=== PATIENT | female | born 1970 | race Caucasian/White ===

== ENCOUNTER 2017-01-17 10:29 | Inpatient (IN) | payer BC, OTHER ==
[2017-01-17] MEDS ORDERED: RX INFO: IV CONTRAST WAS GIVEN 1 EACH MISC MISCELLANE PRN (11:25)
[2017-01-17] MEDS ORDERED: SODIUM CHLORIDE 0.9% 1,000 ML IV STA (11:25)
[2017-01-17] MEDS ORDERED: LORazepam 1 MG TAB PO STA (11:30)
--- NOTE | 2017-01-17 11:34 | ED ---
Abdominal Pain HPI - General Chief Complaint: Abdominal Pain Stated Complaint: abd pain Time Seen by Provider: 01/17/17 10:57 Source: patient Mode of arrival: ambulatory Limitations: no limitations - History of Present Illness Initial Comments: Complaining about right upper quadrant pain, pain started 2 days ago she been nauseous no vomiting denies any fever no chills. She has a history of C- section about 17 years ago for chest pain or shortness of breath no pleuritic chest pain no diarrhea no constipation no frequency urgency dysuria. Review of system is unremarkable - Related Data Home Medications Medication Instructions Recorded Confirmed LORazepam [Ativan] 0.5 mg PO DAILY PRN 05/09/16 01/17/17 Hydrochlorothiazide 25 mg PO DAILY 01/17/17 01/17/17 Allergies Allergy/AdvReac Type Severity Reaction Status Date / Time meperidine HCl [From Demerol] Allergy Unknown Verified 01/17/17 10:38 steroid Allergy Unknown Uncoded 01/17/17 10:38 Review of Systems ROS Statement: Those systems with pertinent positive or pertinent negative responses have been documented in the HPI. ROS Other: All systems not noted in ROS Statement are negative. Past Medical History Past Medical History: Hypertension History of Any Multi-Drug Resistant Organisms: None Reported Past Surgical History: Section, Orthopedic Surgery Additional Past Surgical History / Comment(s): left knee Past Psychological History: Anxiety Smoking Status: Never smoker Past Alcohol Use History: None Reported Past Drug Use History: None Reported General Exam - General Exam Comments Initial Comments: General: The patient is awake and alert, she is anxious and in mild distress Skin: Skin is warm and dry and no rashes or lesions are noted. Eye: Pupils are equal, round and reactive to light, extra-ocular movements are intact; there is normal conjunctiva bilaterally. Ears, nose, mouth and throat: There are moist mucous membranes and no oral lesions. Neck: The neck is supple, there is no tenderness or JVD. Cardiovascular: There is a regular rate and rhythm. No murmur, rub or gallop is appreciated. Heart rate is bit fast, pulse was 1:15 per minute at the time of exam Respiratory: To auscultation bilateral, no wheezing no rhonchi no distress respiratory dumont noticed Gastrointestinal: Soft, non-distended, except right upper quadrant area is moderately tender and she is also tender over the right flank area. He is also tender in the epigastric area Back: There is no tenderness to palpation in the midline. There is no obvious deformity. Musculoskeletal: Normal ROM, no tenderness, There is no pedal edema. There is no calf tenderness or swelling. No cords were appreciated. Neurological: CN II-XII intact, Cranial nerves III through XII are intact. There are no obvious motor or sensory deficits. Coordination appears grossly intact. Speech is normal. Psychiatric: Cooperative, appropriate mood & affect, normal judgment. Limitations: no limitations Course Vital Signs 01/17/17 01/17/17 10:39 13:17 Temperature 97.9 F Pulse Rate 114 H 60 Respiratory 17 16 Rate Blood Pressure 130/87 124/69 O2 Sat by Pulse 97 99 Oximetry She was reassessed at 1345, CBC, CMP, amylase lipase, UA and beta hCG are all negative CT of the abdomen and pelvis confirms acute pancreatitis noticed some inflammation of the pancreatic head on head CT considering that she be admitted to Dr. Bauman's service and she will get ultrasound and Dr. Villatoro will be consulted as well Medical Decision Making - Lab Data Result diagrams: 01/17/17 11:55 01/17/17 11:55 Lab Results 01/17/17 01/17/17 01/17/17 Range/Units 11:55 11:55 11:55 WBC 10.9 H (3.8-10.6) k/uL RBC 4.39 (3.80-5.40) m/uL Hgb 14.1 (11.4-16.0) gm/dL Hct 40.4 (34.0-46.0) % MCV 92.0 (80.0-100.0) fL MCH 32.0 (25.0-35.0) pg MCHC 34.8 (31.0-37.0) g/dL RDW 13.1 (11.5-15.5) % Plt Count 220 (150-450) k/uL Neutrophils % 77 % Lymphocytes % 16 % Monocytes % 4 % Eosinophils % 1 % Basophils % 1 % Neutrophils # 8.4 H (1.3-7.7) k/uL Lymphocytes # 1.8 (1.0-4.8) k/uL Monocytes # 0.5 (0-1.0) k/uL Eosinophils # 0.1 (0-0.7) k/uL Basophils # 0.1 (0-0.2) k/uL Sodium 139 (137-145) mmol/L Potassium 3.5 (3.5-5.1) mmol/L Chloride 101 (98-107) mmol/L Carbon Dioxide 27 (22-30) mmol/L Anion Gap 11 mmol/L BUN 10 (7-17) mg/dL Creatinine 0.90 (0.52-1.04) mg/dL Est GFR (MDRD) Af Amer >60 (>60 ml/min/1.73 sqM) Est GFR (MDRD) Non-Af >60 (>60 ml/min/1.73 sqM) Glucose 95 (74-99) mg/dL Plasma Lactic Acid Edu (0.7-2.0) mmol/L Calcium 9.3 (8.4-10.2) mg/dL Total Bilirubin 1.2 (0.2-1.3) mg/dL AST 18 (14-36) U/L ALT 27 (9-52) U/L Alkaline Phosphatase 105 (38-126) U/L Total Protein 7.4 (6.3-8.2) g/dL Albumin 4.2 (3.5-5.0) g/dL Amylase 53 (30-110) U/L Lipase 81 (23-300) U/L Urine Color Yellow Urine Appearance Cloudy H (Clear) Urine pH 8.0 (5.0-8.0) Ur Specific [place] 1.017 (1.001-1.035) Urine Protein Trace H (Negative) Urine Glucose (UA) Negative (Negative) Urine Ketones 2+ H (Negative) Urine Blood Negative (Negative) Urine Nitrite Negative (Negative) Urine Bilirubin Negative (Negative) Urine Urobilinogen <2.0 (<2.0) mg/dL Ur Leukocyte Esterase Negative (Negative) Urine RBC <1 (0-5) /hpf Urine WBC 1 (0-5) /hpf Ur Squamous Epith Cells 5 H (0-4) /hpf Urine Bacteria Few H (None) /hpf Urine Mucus Rare H (None) /hpf Urine HCG, Qual (Not Detectd) 01/17/17 01/17/17 Range/Units 11:55 11:55 WBC (3.8-10.6) k/uL RBC (3.80-5.40) m/uL Hgb (11.4-16.0) gm/dL Hct (34.0-46.0) % MCV (80.0-100.0) fL MCH (25.0-35.0) pg MCHC (31.0-37.0) g/dL RDW (11.5-15.5) % Plt Count (150-450) k/uL Neutrophils % % Lymphocytes % % Monocytes % % Eosinophils % % Basophils % % Neutrophils # (1.3-7.7) k/uL Lymphocytes # (1.0-4.8) k/uL Monocytes # (0-1.0) k/uL Eosinophils # (0-0.7) k/uL Basophils # (0-0.2) k/uL Sodium (137-145) mmol/L Potassium (3.5-5.1) mmol/L Chloride (98-107) mmol/L Carbon Dioxide (22-30) mmol/L Anion Gap mmol/L BUN (7-17) mg/dL Creatinine (0.52-1.04) mg/dL Est GFR (MDRD) Af Amer (>60 ml/min/1.73 sqM) Est GFR (MDRD) Non-Af (>60 ml/min/1.73 sqM) Glucose (74-99) mg/dL Plasma Lactic Acid Edu 0.9 (0.7-2.0) mmol/L Calcium (8.4-10.2) mg/dL Total Bilirubin (0.2-1.3) mg/dL AST (14-36) U/L ALT (9-52) U/L Alkaline Phosphatase (38-126) U/L Total Protein (6.3-8.2) g/dL Albumin (3.5-5.0) g/dL Amylase (30-110) U/L Lipase (23-300) U/L Urine Color Urine Appearance (Clear) Urine pH (5.0-8.0) Ur Specific [place] (1.001-1.035) Urine Protein (Negative) Urine Glucose (UA) (Negative) Urine Ketones (Negative) Urine Blood (Negative) Urine Nitrite (Negative) Urine Bilirubin (Negative) Urine Urobilinogen (<2.0) mg/dL Ur Leukocyte Esterase (Negative) Urine RBC (0-5) /hpf Urine WBC (0-5) /hpf Ur Squamous Epith Cells (0-4) /hpf Urine Bacteria (None) /hpf Urine Mucus (None) /hpf Urine HCG, Qual Not Detected (Not Detectd) Disposition Clinical Impression: Right upper quadrant pain, Right flank pain, Acute pancreatitis Disposition: ADMITTED IP TO THIS HOSP Condition: Good Referrals: Caryl Toribio MD [Primary Care Provider] - 1-2 days
[2017-01-17] MEDS: SODIUM CHLORIDE 0.9% 1,000 ML IV STA ×2 (12:00→18:32)
[2017-01-17 12:10] LABS: Basophils # (A) 0.1 k/uL (0-0.2); Basophils % (A) 1 %; CH 32.6; CHCM 35.6; Eosinophils # (A) 0.1 k/uL (0-0.7); Eosinophils % (A) 1 %; HCT 40.4 % (34.0-46.0); HDW 2.62; HGB 14.1 gm/dL (11.4-16.0); Luc # (Auto) 0.15; Luc % (Auto) 1; Lymphocytes # (A) 1.8 k/uL (1.0-4.8); Lymphocytes % (A) 16 %; MCHC 34.8 g/dL (31.0-37.0); Mean Platelet Volume 7.2; Monocytes # (A) 0.5 k/uL (0-1.0); Monocytes % (A) 4 %; Neutrophils # (A) 8.4 k/uL (1.3-7.7); Neutrophils % (A) 77 %; RBC 4.39 m/uL (3.80-5.40); RDW 13.1 % (11.5-15.5); WBC 10.9 k/uL (3.8-10.6); WBC (Perox) 9.81
[2017-01-17 12:13] LABS: Appearance,Urine Cloudy (Clear); Bacteria,Urine Few /hpf; Bilirubin,Urine Negative (Negative); Glucose,Urine (UA) Negative (Negative); Ketones,Urine 2+ (Negative); Leukocyte Esterase,Urine Negative (Negative); Mucus,Urine Rare /hpf; Nitrite,Urine Negative (Negative); Particle Count 5456; Protein,Urine Trace (Negative); RBC,Urine <1 /hpf (0-5); Specific Gravity,Urine 1.017 (1.001-1.035); Squamous Epithelial Cell,Urine 5 /hpf (0-4); UA Billing (MACRO vs. MICRO) MICRO; Urobilinogen,Urine <2.0 mg/dL (<2.0); WBC,Urine 1 /hpf (0-5)
[2017-01-17 12:27] LABS: ALT 27 U/L (9-52); AST 18 U/L (14-36); Alkaline Phosphatase 105 U/L (38-126); Amylase 53 U/L (30-110); Anion Gap 11 mmol/L; Blood Urea Nitrogen 10 mg/dL (7-17); Calcium 9.3 mg/dL (8.4-10.2); Carbon Dioxide 27 mmol/L (22-30); Chloride 101 mmol/L (98-107); Glucose 95 mg/dL (74-99); Non-African American GFR(MDRD) >60 (>60 ml/min/1.73 sqM); Potassium 3.5 mmol/L (3.5-5.1); Sodium 139 mmol/L (137-145); Total Bilirubin 1.2 mg/dL (0.2-1.3); Total Protein 7.4 g/dL (6.3-8.2)
--- NOTE | 2017-01-17 13:25 | CT ---
EXAMINATION TYPE: CT abdomen pelvis w con DATE OF EXAM: 01/17/2017 12:57 PM REFERENCE: NONE HISTORY: abdominal pain HISTORY: RUQ pain REFERENCE: NONE CT DLP: 1798 mGy Automated exposure control for dose reduction was used. TECHNIQUE: Helical acquisition through the abdomen and pelvis was obtained following the oral ingesti on of without Oral Contrast and following intravenous administration of 100 mL of Omnipaque 300. The data was reformatted in axial, coronal and sagittal projections. FINDINGS: Visualized portions of the lungs are clear. There is no pleural or pericardial fluid. The heart is not enlarged. Within the abdomen, the liver, spleen and gallbladder are normal. Both adrenal glands appear normal. Both kidneys demonstrate function and appear morphologically normal. There is inflammation around the head of the pancreas suggestive of pancreatitis. There is no pseudoc yst formation at this time. There is no significant retroperitoneal, iliac or inguinal adenopathy. The uterus is unremarkable. There is a 2.7 cm right ovarian cyst. There is a 1.8 cm left ovarian cyst . The bladder is unremarkable. There is no significant diverticular change and there is no radiographic evidence of diverticulitis. The appendix is normal. Small bowel loops appear normal. There is no free fluid and no free air. There is hypertrophic spondylosis within the lower dorsal spine. There is facet arthropathy at the L4 -5 level. No bony destructive lesion is seen. IMPRESSION: 1. FINDINGS CONSISTENT WITH ACUTE PANCREATITIS. 2. BILATERAL OVARIAN CYSTS. 3. MILD DEGENERATIVE CHANGES WITHIN THE SPINE.
[2017-01-17] MEDS ORDERED: NALOXONE 0.4 MG/ML 1 ML VIAL IV PRN (14:01)
[2017-01-17] MEDS ORDERED: ONDANSETRON 4 MG/2 ML VIAL IVP PRN (14:01)
[2017-01-17] MEDS ORDERED: HYDROmorphone 1 MG/ML 1 ML SYRINGE IV PRN (14:01)
[2017-01-17] MEDS ORDERED: LORazepam 1 MG TAB PO PRN (14:06)
--- NOTE | 2017-01-17 14:58 | US ---
EXAMINATION TYPE: US abdomen limited DATE OF EXAM: 01/17/2017 2:28 PM COMPARISON: NONE CLINICAL HISTORY: Pain. RUQ pain, pancreatitis EXAM MEASUREMENTS: Liver Length: 13.8 cm Gallbladder Wall: 0.2 cm CBD: 0.3 cm Right Kidney: 10.3 x 5.5 x 4.6 cm Pancreas: obscured by overlying bowel content Liver: appears wnl Gallbladder: no evidence of stones Evidence for sonographic Wiggins's sign: no CBD: visualized portion appears wnl Right Kidney: no evidence of hydronephrosis, kidney is morphologically normal There is no ascites. IMPRESSION: No abnormality evident to account for patient's symptoms, CT scan shows findings suggesti ve of pancreatitis
--- NOTE | 2017-01-17 16:10 | P.GSCN ---
History of Present Illness Consult date: 01/17/17 Reason for Consult: Acute pancreatitis Requesting physician: Oliver Parkinson History of present illness: Patient is a 46-year-old female, patient of Dr. Arcoe in the outpatient setting, presenting to the emergency department with complaints of right upper quadrant pain onset 2 days associated with nausea but no vomiting. No history of fevers or chills. CT of abdomen and pelvis with evidence of inflammation around the head of the pancreas suggestive of pancreatitis without evidence of pseudocyst. Ultrasound of abdomen with no evidence of sonographic Wiggins sign or other abnormality evident to account for patient's symptoms. Patient afebrile. WBC 10.9. Liver enzymes within normal limits. Past Medical History Past Medical History: Hypertension History of Any Multi-Drug Resistant Organisms: None Reported Past Surgical History: Section, Orthopedic Surgery Additional Past Surgical History / Comment(s): left knee Past Psychological History: Anxiety Smoking Status: Never smoker Past Alcohol Use History: None Reported Past Drug Use History: None Reported Medications and Allergies Home Medications Medication Instructions Recorded Confirmed Type LORazepam [Ativan] 0.5 mg PO DAILY PRN 05/09/16 01/17/17 History Hydrochlorothiazide 25 mg PO DAILY 01/17/17 01/17/17 History Allergies Allergy/AdvReac Type Severity Reaction Status Date / Time meperidine HCl [From Demerol] Allergy Unknown Verified 01/17/17 10:38 steroid Allergy Unknown Uncoded 01/17/17 10:38 Surgical - Exam Vital Signs Temp Pulse Resp BP Pulse Ox 97.9 F 114 H 17 130/87 97 01/17/17 10:39 01/17/17 10:39 01/17/17 10:39 01/17/17 10:39 01/17/17 10:39 GENERAL: Pt awake and alert, well-appearing, well-nourished, and in no acute distress. EYES: Pupils equal, round, sclera anicteric, conjunctiva are normal. ENT: Moist mucous membranes. NECK: Supple without lymphadenopathy. LUNGS: Breath sounds clear to auscultation bilaterally. No wheezes, rales, or rhonchi. HEART: Heart S1, S2, no S3 or S4. Regular rate and rhythm. No murmurs, rubs or gallops. ABDOMEN: Soft, mild epigastric and right upper quadrant tenderness, nondistended , normoactive bowel sounds. No guarding, no rebound. No masses or organomegaly appreciated. NEUROLOGICAL: Pt oriented x 3. Results - Labs 01/17/17 11:55 01/17/17 11:55 Abnormal Lab Results - Last 24 Hours (Table) 01/17/17 01/17/17 Range/Units 11:55 11:55 WBC 10.9 H (3.8-10.6) k/uL Neutrophils # 8.4 H (1.3-7.7) k/uL Urine Appearance Cloudy H (Clear) Urine Protein Trace H (Negative) Urine Ketones 2+ H (Negative) Ur Squamous Epith Cells 5 H (0-4) /hpf Urine Bacteria Few H (None) /hpf Urine Mucus Rare H (None) /hpf Diabetes panel 01/17/17 Range/Units 11:55 Sodium 139 (137-145) mmol/L Potassium 3.5 (3.5-5.1) mmol/L Chloride 101 (98-107) mmol/L Carbon Dioxide 27 (22-30) mmol/L BUN 10 (7-17) mg/dL Creatinine 0.90 (0.52-1.04) mg/dL Glucose 95 (74-99) mg/dL Calcium 9.3 (8.4-10.2) mg/dL AST 18 (14-36) U/L ALT 27 (9-52) U/L Alkaline Phosphatase 105 (38-126) U/L Total Protein 7.4 (6.3-8.2) g/dL Albumin 4.2 (3.5-5.0) g/dL Calcium panel 01/17/17 Range/Units 11:55 Calcium 9.3 (8.4-10.2) mg/dL Albumin 4.2 (3.5-5.0) g/dL Pituitary panel 01/17/17 Range/Units 11:55 Sodium 139 (137-145) mmol/L Potassium 3.5 (3.5-5.1) mmol/L Chloride 101 (98-107) mmol/L Carbon Dioxide 27 (22-30) mmol/L BUN 10 (7-17) mg/dL Creatinine 0.90 (0.52-1.04) mg/dL Glucose 95 (74-99) mg/dL Calcium 9.3 (8.4-10.2) mg/dL Adrenal panel 01/17/17 Range/Units 11:55 Sodium 139 (137-145) mmol/L Potassium 3.5 (3.5-5.1) mmol/L Chloride 101 (98-107) mmol/L Carbon Dioxide 27 (22-30) mmol/L BUN 10 (7-17) mg/dL Creatinine 0.90 (0.52-1.04) mg/dL Glucose 95 (74-99) mg/dL Calcium 9.3 (8.4-10.2) mg/dL Total Bilirubin 1.2 (0.2-1.3) mg/dL AST 18 (14-36) U/L ALT 27 (9-52) U/L Alkaline Phosphatase 105 (38-126) U/L Total Protein 7.4 (6.3-8.2) g/dL Albumin 4.2 (3.5-5.0) g/dL - Imaging CT scan - abdomen: report reviewed CT scan - pelvis: report reviewed US - abdomen: report reviewed Assessment and Plan Plan: Impression: 1. Acute pancreatitis as evidenced by CT of abdomen and pelvis. Liver enzymes unremarkable. Patient may have passed a gallstone. Plan: 1. Patient will undergo HIDA scan. Continue IV hydration. Continue supportive treatment and pain management. Continue to follow with medical team. The above impression and plan have been discussed and directed by Dr. Tee. Jaymie HENDERSON acting as scribe for Dr. Lopes.
--- NOTE | 2017-01-17 16:22 | P.HPIM ---
History of Present Illness H&P Date: 01/17/17 Chief Complaint: Abdominal pain epigastric right upper quadrant This is a pleasant 46-year-old lady patient of Dr. Dr. Toribio, with history of hypertension and anxiety hyperlipidemia currently diet-controlled, he presented to the emergency room secondary to abdominal pain of approximately 2 days' duration, it is described as sharp constant epigastric region and right upper quadrant region radiating to the right side, patient does not have any fever or chills no nausea no vomiting or diarrhea. Patient has intermittent bloating and indigestion for years, no previous workup for this to previous treatment for this. The emergency room she had a CAT scan of the abdomen and pelvis findings consistent with acute pancreatitis and bilateral ovarian cyst, mild DJD of the lower spine attention was made to inflammation around the head of the pancreas suggestive of pancreatitis. No pseudocyst formation noted, no lymph node however laboratories shows normal lipase of 81, urine WBC is normal at 1, ketones noted blood WBC of 10.9 normal liver function test Patient was admitted with consultation to Gen. surgery Dr. Lopes abdominal ultrasound was requested Review of Systems Constitutional: Reports as per HPI, Denies anorexia, Denies chills, Denies chronic headaches, Denies chronic pain, Denies daytime sleepiness, Denies fatigue, Denies fever, Denies lethargy, Denies malaise, Denies night sweats, Denies poor appetite, Denies sweats, Denies weakness, Denies weight gain, Denies weight loss Ears, nose, mouth and throat: Reports as per HPI, Denies ant. neck pain, Denies bleeding gums, Denies dental pain, Denies dysphagia, Denies epistaxis, Denies headache, Denies hoarseness, Denies mouth pain, Denies nasal congestion, Denies nasal discharge, Denies neck fullness/pressure, Denies neck lump, Denies nose pain, Denies odynophagia, Denies post-nasal drip, Denies sinus pain, Denies sinus pressure, Denies swelling in mouth, Denies swelling in throat, Denies sore throat, Denies vertigo, Denies voice changes Cardiovascular: Reports as per HPI, Denies chest pain, Denies claudication, Denies decreased exercise tolerance, Denies dyspnea on exertion, Denies edema, Denies high blood pressure, Denies irregular heart beat, Denies leg edema, Denies lightheadedness, Denies orthopnea, Denies palpitations, Denies paroxysmal nocturnal dyspnea, Denies phlebitis, Denies rapid heart beat, Denies shortness of breath, Denies syncope Respiratory: Reports as per HPI, Denies congestion, Denies cough, Denies cough with sputum, Denies dyspnea, Denies excessive sputum, Denies hemoptysis, Denies home oxygen, Denies pain, Denies pain on inspiration, Denies pleurisy, Denies respiratory infections, Denies sleep apnea, Denies snoring, Denies wheezing Gastrointestinal: Reports as per HPI, Reports abdominal pain, Reports belching, Reports bloating, Reports heartburn, Reports indigestion, Denies BRBPR, Denies change in bowel habits, Denies coffee ground emesis, Denies constipation, Denies diarrhea, Denies dyspepsia, Denies early satiety, Denies excessive gas, Denies hematemesis, Denies hematochezia, Denies jaundice, Denies lactose intolerance, Denies loss of appetite, Denies melena, Denies nausea, Denies vomiting Genitourinary: Reports as per HPI, Denies abnormal vaginal bleeding, Denies decreased libido, Denies difficulty conceiving, Denies difficulty voiding, Denies dysmenorrhea, Denies dyspareunia, Denies dysuria, Denies flank pain, Denies genital sores, Denies hematuria, Denies hot flashes, Denies incomplete emptying, Denies kidney stones, Denies menorrhagia, Denies mixed incontinence, Denies nocturia, Denies pelvic pain, Denies post void dribbling, Denies , Denies prolapse symptoms, Denies stress incontinence, Denies urge incontinence , Denies urgency, Denies urinary frequency, Denies vaginal discharge, Denies vaginal dryness, Denies vaginal itching, Denies vaginal odor Menstruation: Reports as per HPI Musculoskeletal: Reports as per HPI, Denies arm numbness/tingling, Denies atrophy, Denies fractures, Denies frequent falls, Denies gait dysfunction, Denies hot joints, Denies leg numbness/tingling, Denies limitation of motion, Denies loss of height, Denies low back pain, Denies morning stiffness, Denies muscle cramps, Denies muscle weakness, Denies myalgias, Denies neck pain, Denies neck stiffness, Denies prior amputations, Denies redness of joints, Denies shooting arm pain, Denies shooting leg pain Integumentary: Reports as per HPI, Denies acne, Denies boils, Denies brittle nails, Denies change in hair/nails, Denies color changes, Denies darkening of skin, Denies depigmentation, Denies dryness, Denies foot/leg ulcers, Denies growths, Denies hirsutism, Denies lesions, Denies onychomycosis, Denies pruritus , Denies rash, Denies sores, Denies striae, Denies unusual bruising, Denies wounds Neurological: Reports as per HPI, Denies aphasia, Denies ataxia, Denies balance difficulties, Denies burning pain, Denies change in mentation, Denies change in smell/taste, Denies change in speech, Denies confusion, Denies convulsions, Denies double vision, Denies gait dysfunction, Denies head injury, Denies headaches, Denies hearing difficulties, Denies lack of coordination, Denies loss of vision, Denies memory loss, Denies migraines, Denies motor disturbance, Denies numbness, Denies paralysis, Denies paresthesias, Denies seizures, Denies sensory deficit, Denies spasticity, Denies syncope, Denies tic, Denies tingling , Denies transient paralysis, Denies tremors, Denies vertigo, Denies weakness, Denies visual changes Psychiatric: Reports as per HPI, Denies anhedonia, Denies anxiety, Denies anxiety attacks, Denies change in appetite, Denies change in libido, Denies change in sleep habits, Denies confusion, Denies depression, Denies difficulty concentrating, Denies disorientation, Denies hallucinations, Denies hopelessness , Denies hypersomnia, Denies insomnia, Denies irritability, Denies memory loss, Denies mood swings, Denies paranoia, Denies sadness/tearfulness, Denies sleep disturbances, Denies suicidal ideation Endocrine: Reports as per HPI, Denies cold intolerance, Denies deepening of the voice, Denies excessive sweating, Denies excessive thirst, Denies fatigue, Denies flushing, Denies heat intolerance, Denies high blood sugars, Denies increase in ring/shoe/hat size, Denies low blood sugars, Denies nocturia, Denies palpitations, Denies polydipsia, Denies polyphagia, Denies polyuria, Denies proptosis, Denies recent glucocorticoid use, Denies thyroid mass, Denies weight change Past Medical History Past Medical History: Hypertension History of Any Multi-Drug Resistant Organisms: None Reported Past Surgical History: Section, Orthopedic Surgery Additional Past Surgical History / Comment(s): left knee Past Psychological History: Anxiety Smoking Status: Never smoker Past Alcohol Use History: None Reported Past Drug Use History: None Reported - Past Family History Mother Family Medical History: No Reported History Medications and Allergies Home Medications Medication Instructions Recorded Confirmed Type LORazepam [Ativan] 0.5 mg PO DAILY PRN 05/09/16 01/17/17 History Hydrochlorothiazide 25 mg PO DAILY 01/17/17 01/17/17 History Allergies Allergy/AdvReac Type Severity Reaction Status Date / Time meperidine HCl [From Demerol] Allergy Severe Nausea & Verified 01/17/17 18:01 Vomiting steroid Allergy Severe Nausea & Uncoded 01/17/17 18:01 Vomiting Physical Exam Vitals: Vital Signs Temp Pulse Pulse Resp BP BP Pulse Ox 01/17/17 15:37 97.3 F L 95 24 117/67 99 01/17/17 14:40 97.5 F L 99 18 132/78 98 01/17/17 13:17 60 16 124/69 99 01/17/17 10:39 97.9 F 114 H 17 130/87 97 Intake and Output 01/17/17 01/17/17 01/17/17 06:59 14:59 22:59 Other: Weight 90.718 kg 100.4 kg Patient Weight 01/18/17 06:59 Weight 100.4 kg - Constitutional General appearance: cooperative, no acute distress, obese - EENT Eyes: anicteric sclerae, EOMI, PERRLA, dentition normal, normal appearance ENT: hearing grossly normal, NA/AT, normal oropharynx - Neck Neck: no lymphadenopathy, normal ROM, no other, no rigidity, no stridor, no thyromegaly - Respiratory Respiratory: bilateral: CTA, negative: diminished, dullness, rales, rhonchi, wheezing, prolonged expiration - Cardiovascular Rhythm: regular Abnormal Heart Sounds: no systolic murmur, no diastolic murmur, no rub, no S3 Gallop, no S4 Gallop, no click, no other - Gastrointestinal General gastrointestinal: soft, tenderness (Epigastric and right upper quadrant) - Integumentary Integumentary: normal, normal turgor - Neurologic Neurologic: CNII-XII intact - Musculoskeletal Musculoskeletal: gait normal, strength equal bilaterally - Psychiatric Psychiatric: A&O x's 3, appropriate affect, intact judgment & insight Results CBC & Chem 7: 01/18/17 07:28 01/18/17 07:28 Labs: Abnormal Lab Results - Last 24 Hours (Table) 01/17/17 01/17/17 Range/Units 11:55 11:55 WBC 10.9 H (3.8-10.6) k/uL Neutrophils # 8.4 H (1.3-7.7) k/uL Urine Appearance Cloudy H (Clear) Urine Protein Trace H (Negative) Urine Ketones 2+ H (Negative) Ur Squamous Epith Cells 5 H (0-4) /hpf Urine Bacteria Few H (None) /hpf Urine Mucus Rare H (None) /hpf Laboratory Results WBC 10.9 k/uL (3.8-10.6) H 01/17/17 11:55 RBC 4.39 m/uL (3.80-5.40) 01/17/17 11:55 Hgb 14.1 gm/dL (11.4-16.0) 01/17/17 11:55 Hct 40.4 % (34.0-46.0) 01/17/17 11:55 MCV 92.0 fL (80.0-100.0) 01/17/17 11:55 MCH 32.0 pg (25.0-35.0) 01/17/17 11:55 MCHC 34.8 g/dL (31.0-37.0) 01/17/17 11:55 RDW 13.1 % (11.5-15.5) 01/17/17 11:55 Plt Count 220 k/uL (150-450) 01/17/17 11:55 Neutrophils % 77 % 01/17/17 11:55 Lymphocytes % 16 % 01/17/17 11:55 Monocytes % 4 % 01/17/17 11:55 Eosinophils % 1 % 01/17/17 11:55 Basophils % 1 % 01/17/17 11:55 Neutrophils # 8.4 k/uL (1.3-7.7) H 01/17/17 11:55 Lymphocytes # 1.8 k/uL (1.0-4.8) 01/17/17 11:55 Monocytes # 0.5 k/uL (0-1.0) 01/17/17 11:55 Eosinophils # 0.1 k/uL (0-0.7) 01/17/17 11:55 Basophils # 0.1 k/uL (0-0.2) 01/17/17 11:55 Sodium 139 mmol/L (137-145) 01/17/17 11:55 Potassium 3.5 mmol/L (3.5-5.1) 01/17/17 11:55 Chloride 101 mmol/L (98-107) 01/17/17 11:55 Carbon Dioxide 27 mmol/L (22-30) 01/17/17 11:55 Anion Gap 11 mmol/L 01/17/17 11:55 BUN 10 mg/dL (7-17) 01/17/17 11:55 Creatinine 0.90 mg/dL (0.52-1.04) 01/17/17 11:55 Est GFR (MDRD) Af Amer >60 (>60 ml/min/1.73 sqM) 01/17/17 11:55 Est GFR (MDRD) Non-Af >60 (>60 ml/min/1.73 sqM) 01/17/17 11:55 Glucose 95 mg/dL (74-99) 01/17/17 11:55 Plasma Lactic Acid Edu 0.9 mmol/L (0.7-2.0) 01/17/17 11:55 Calcium 9.3 mg/dL (8.4-10.2) 01/17/17 11:55 Total Bilirubin 1.2 mg/dL (0.2-1.3) 01/17/17 11:55 AST 18 U/L (14-36) 01/17/17 11:55 ALT 27 U/L (9-52) 01/17/17 11:55 Alkaline Phosphatase 105 U/L (38-126) 01/17/17 11:55 Total Protein 7.4 g/dL (6.3-8.2) 01/17/17 11:55 Albumin 4.2 g/dL (3.5-5.0) 01/17/17 11:55 Amylase 53 U/L (30-110) 01/17/17 11:55 Lipase 81 U/L (23-300) 01/17/17 11:55 Urine Color Yellow 01/17/17 11:55 Urine Appearance Cloudy (Clear) H 01/17/17 11:55 Urine pH 8.0 (5.0-8.0) 01/17/17 11:55 Ur Specific [place] 1.017 (1.001-1.035) 01/17/17 11:55 Urine Protein Trace (Negative) H 01/17/17 11:55 Urine Glucose (UA) Negative (Negative) 01/17/17 11:55 Urine Ketones 2+ (Negative) H 01/17/17 11:55 Urine Blood Negative (Negative) 01/17/17 11:55 Urine Nitrite Negative (Negative) 01/17/17 11:55 Urine Bilirubin Negative (Negative) 01/17/17 11:55 Urine Urobilinogen <2.0 mg/dL (<2.0) 01/17/17 11:55 Ur Leukocyte Esterase Negative (Negative) 01/17/17 11:55 Urine RBC <1 /hpf (0-5) 01/17/17 11:55 Urine WBC 1 /hpf (0-5) 01/17/17 11:55 Ur Squamous Epith Cells 5 /hpf (0-4) H 01/17/17 11:55 Urine Bacteria Few /hpf (None) H 01/17/17 11:55 Urine Mucus Rare /hpf (None) H 01/17/17 11:55 Urine HCG, Qual Not Detected (Not Detectd) 01/17/17 11:55 Assessment and Plan Plan: 1. Upper quadrant abdominal pain with epigastric and right upper quadrant however CAT scan finding shows rheumatoid changes in the head of the pancreas, normal lipase, patient's symptoms are more consistent with gallbladder disease, patient was seen consultation by Dr. Lopes from general surgery, abdominal ultrasound was requested. await HIDA scan CCk ordered by general surgery Patient can be started clear liquid diet and a low fat diet later on eyes pain has improved 2. Hypertension on hydrochlorothiazide 25 mg daily which will be held secondary to dehydration 3. Anxiety on when necessary as a given 4. GI prophylaxis on Protonix 5 DVT prophylaxisearly ambulation
[2017-01-17 18:15] VITALS: BMI 34.7
--- NOTE | 2017-01-17 18:22 | NM ---
EXAMINATION TYPE: NM hepatobiliary w EF DATE OF EXAM: 01/17/2017 5:33 PM COMPARISON: NONE HISTORY: TECHNIQUE: After the intravenous administration of 5.5 mCi Tc 99m Mebrofenin hepatobiliary scintigrap hy is performed. Immediate images post injection. FINDINGS: There is prompt uptake of the tracer by the liver that has normal size and contour. There is tracer i n the gallbladder at 10 minutes and tracer in the small bowel at 20 minutes which excludes obstructio n of the cystic duct and the common bile duct. Tracers mostly cleared from the liver at one hour. The post stimulation images show gallbladder ejection fraction of 71%. IMPRESSION: Normal exam. Normal gallbladder ejection fraction of 71%.
[2017-01-17] MEDS: ACETAMINOPHEN TAB 325 MG TAB PO PRN (21:13)
[2017-01-18] MEDS: SODIUM CHLORIDE 0.9% 1,000 ML IV STA (04:00)
[2017-01-18] MEDS: ACETAMINOPHEN TAB 325 MG TAB PO PRN ×2 (04:00→10:17)
[2017-01-18 08:14] LABS: Basophils # (A) 0.1 k/uL (0-0.2); Basophils % (A) 1 %; CH 32.2; CHCM 34.9; Eosinophils # (A) 0.1 k/uL (0-0.7); Eosinophils % (A) 1 %; HCT 35.7 % (34.0-46.0); HDW 2.58; HGB 12.2 gm/dL (11.4-16.0); Luc # (Auto) 0.12; Luc % (Auto) 2; Lymphocytes # (A) 1.8 k/uL (1.0-4.8); Lymphocytes % (A) 23 %; MCH 31.6 pg (25.0-35.0); MCHC 34.1 g/dL (31.0-37.0); MCV 92.7 fL (80.0-100.0); Mean Platelet Volume 7.3; Monocytes # (A) 0.5 k/uL (0-1.0); Monocytes % (A) 6 %; Neutrophils # (A) 5.4 k/uL (1.3-7.7); Neutrophils % (A) 68 %; RBC 3.85 m/uL (3.80-5.40); WBC 7.9 k/uL (3.8-10.6); WBC (Perox) 7.98
[2017-01-18 08:25] LABS: ALT 22 U/L (9-52); AST 13 U/L (14-36); Alkaline Phosphatase 74 U/L (38-126); Amylase 42 U/L (30-110); Anion Gap 7 mmol/L; Blood Urea Nitrogen 7 mg/dL (7-17); Calcium 8.3 mg/dL (8.4-10.2); Carbon Dioxide 24 mmol/L (22-30); Chloride 107 mmol/L (98-107); Glucose 89 mg/dL (74-99); Non-African American GFR(MDRD) >60 (>60 ml/min/1.73 sqM); Potassium 3.3 mmol/L (3.5-5.1); Sodium 138 mmol/L (137-145); Total Bilirubin 1.2 mg/dL (0.2-1.3)
[2017-01-18] MEDS ORDERED: PANTOPRAZOLE 40 MG/10 ML VIAL IV SCH (09:00)
[2017-01-18 09:17] VITALS: RESP 20
[2017-01-18 12:06] VITALS: BP 107/65; PULSE 87; TEMP 97.8
--- NOTE | 2017-01-18 17:14 | P.PN ---
Subjective Patient is a 46-year-old female presenting to the emergency department with complaints of right upper quadrant pain onset 2 days associated with nausea but no vomiting. No history of fevers or chills. CT of abdomen and pelvis with evidence of inflammation around the head of the pancreas suggestive of pancreatitis without evidence of pseudocyst. Ultrasound of abdomen with no evidence of sonographic Wiggins sign or other abnormality evident to account for patient's symptoms. HIDA scan negative. Upon exam, patient is feeling better. Patient is complaining of mild right upper quadrant pain currently rated 2 out of 10. Denies chills, fevers, nausea, vomiting, shortness of breath, or chest pain. Afebrile. Liver enzymes normal. Objective - Vital Signs Vital signs: Vital Signs Temp 97.8 F 01/18/17 11:23 Pulse 87 01/18/17 11:23 Resp 20 01/18/17 11:23 BP 107/65 01/18/17 11:23 Pulse Ox 96 01/18/17 11:23 Intake & Output 01/17/17 01/18/17 01/18/17 18:59 06:59 18:59 Intake Total 240 720 Output Total 1200 Balance -960 720 Weight 100.4 kg Intake: Oral 240 720 Output: Urine 1200 Other: Voiding Method Toilet Toilet # Voids 1 - Exam GENERAL: Pt awake and alert, well-appearing, well-nourished, and in no acute distress. EYES: Pupils equal, round, sclera anicteric, conjunctiva are normal. ENT: Moist mucous membranes. NECK: Supple without lymphadenopathy. LUNGS: Breath sounds clear to auscultation bilaterally. No wheezes, rales, or rhonchi. HEART: Heart S1, S2, no S3 or S4. Regular rate and rhythm. No murmurs, rubs or gallops. ABDOMEN: Soft, mild epigastric and right upper quadrant tenderness, nondistended , normoactive bowel sounds. No guarding, no rebound. No masses or organomegaly appreciated. NEUROLOGICAL: Pt oriented x 3. - Labs CBC & Chem 7: 01/18/17 07:28 01/18/17 07:28 Labs: Abnormal Lab Results - Last 24 Hours (Table) 01/18/17 Range/Units 07:28 Potassium 3.3 L (3.5-5.1) mmol/L Calcium 8.3 L (8.4-10.2) mg/dL AST 13 L (14-36) U/L Total Protein 6.0 L (6.3-8.2) g/dL Albumin 3.2 L (3.5-5.0) g/dL Assessment and Plan Plan: Impression: 1. Acute pancreatitis as evidenced by CT of abdomen and pelvis, improved. Liver enzymes unremarkable. Patient may have passed a gallstone. Plan: 1. Continue supportive treatment and pain management. Continue to follow with medical team. From a surgical standpoint, patient is stable for discharge. The above impression and plan have been discussed and directed by Dr. Tee. Jaymie HENDERSON acting as scribe for Dr. Lopes.
--- NOTE | 2017-01-19 15:56 | P.DS ---
Providers Date of admission: 01/17/17 14:01 Expected date of discharge: 01/18/17 Attending physician: Kiersten Samuels Consults: 01/17/17 14:01 Consult Physician Stat Consulting Provider: Geoff Lopes Consult Reason/Comments: Acute pancreatitis Do you want consulting provider notified?: Yes Primary care physician: Caryl Toribio [place] [facility] Course: This is a pleasant 46-year-old lady patient of Dr. Toribio, with history of hypertension and anxiety hyperlipidemia currently diet-controlled, he presented to the emergency room secondary to abdominal pain of approximately 2 days' duration, it is described as sharp constant epigastric region and right upper quadrant region radiating to the right side, patient does not have any fever or chills no nausea no vomiting or diarrhea. Patient has intermittent bloating and indigestion for years, no previous workup for this to previous treatment for this. The emergency room she had a CAT scan of the abdomen and pelvis findings consistent with acute pancreatitis and bilateral ovarian cyst, mild DJD of the lower spine attention was made to inflammation around the head of the pancreas suggestive of pancreatitis. No pseudocyst formation noted, no lymph node however laboratories shows normal lipase of 81, urine WBC is normal at 1, ketones noted blood WBC of 10.9 normal liver function test Patient was admitted with consultation to Gen. surgery Dr. Lopes abdominal ultrasound was requested 01/18: Patient has been seen by Dr. Lopes and cleared for discharge home. Amylase and lipase remain in normal limit. HIDA scan shows normal exam with gallbladder ejection fraction of 71%. Patient will be discharged home today in stable condition. Discharge diagnoses: 1. Upper quadrant abdominal pain with epigastric pain due to acute pancreatitis on CAT scan with immediate resolution possibly related to a passed gallstone 2. Hypertension 3. Anxiety generalized Discharge plan: return home Impression and plan of care have been directed as dictated by the signing physician. Janet Lemos nurse practitioner acting as scribe for signing physician. CC: Dr. Toribio Patient Condition at Discharge: Good Plan - Discharge Summary Discharge Medication List LORazepam [Ativan] 0.5 mg PO DAILY PRN 05/09/16 [History] Hydrochlorothiazide 25 mg PO DAILY 01/17/17 [History] Follow up Appointment(s)/Referral(s): Caryl Toribio MD [Primary Care Provider] - 1 Week (january 30 3:45) Geoff Lopes MD [STAFF PHYSICIAN] - As Needed Activity/Diet/Wound Care/Special Instructions: Low fat diet, small frequent meals. Activity as tolerated If pain returns, vomiting, fever or any other questions or concerns contact your family physician. Discharge Disposition: HOME SELF-CARE
== END 2017-01-18 14:15 | disposition home or self-care (01) | DRG 440 ==
LOC: EC 10:29 → 6PED 14:01
PROVIDERS: ADMIT Family Medicine; ATTEND Family Medicine
DX: K85.90 Acute pancreatitis without necrosis or infection, unspecified (principal); I10 Essential (primary) hypertension; M19.91 Primary osteoarthritis, unspecified site; E78.5 Hyperlipidemia, unspecified; K30 Functional dyspepsia; N83.201 Unspecified ovarian cyst, right side; N83.202 Unspecified ovarian cyst, left side; F41.1 Generalized anxiety disorder; E86.0 Dehydration; Z79.899 Other long term (current) drug therapy; Z88.8 Allergy status to other drugs, medicaments and biological substances
CPT/HCPCS: 36415; 74177; 76705; 78226; 80053; 81001; 81025; 82150; 83605; 83690; 85025

== ENCOUNTER → 2017-07-05 | Outpatient (CLI) | payer OTHER ==
--- NOTE | 2017-07-09 10:09 | MM ---
Reason for exam: screening (asymptomatic). Last mammogram was performed 1 year ago. History: Benign left mammotome panel of the left breast, April 09, 2012. Physical Findings: A clinical breast exam by your physician is recommended on an annual basis and results should be correlated with mammographic findings. MG 3D Screening Mammo W/Cad Bilateral CC and MLO view(s) were taken. Prior study comparison: June 29, 2016, bilateral MG 3d screening mammo w/cad. June 03, 2015, bilateral MG screening mammo w CAD. The breast tissue is extremely dense which could obscure a lesion on mammography. Finding: There are stable heterogeneous, grouped/clustered calcifications in the upper outer quadrant, middle position of the left breast 7cm from the nipple, adjacent to core marker. No significant changes in finding since June 29, 2016 and June 03, 2015. ASSESSMENT: Benign, BI-RAD 2 RECOMMENDATION: Routine screening mammogram of both breasts in 1 year.
== END | disposition home or self-care (01) ==
LOC: RADMAMWWP 07:16
PROVIDERS: ATTEND Obstetrics & Gynecology
DX: Z12.31 Encounter for screening mammogram for malignant neoplasm of breast (principal)
CPT/HCPCS: 77063; G0202

== ENCOUNTER → 2017-11-08 | Outpatient (CLI) | payer OTHER | END | disposition home or self-care (01) | LOC: MMGSC 17:08 | PROVIDERS: ATTEND Family Medicine | DX: N39.0 Urinary tract infection, site not specified (principal) | CPT/HCPCS: 87086 ==

== ENCOUNTER → 2018-08-26 | Outpatient (CLI) | payer OTHER ==
--- NOTE | 2018-08-28 11:52 | MM ---
Reason for exam: screening (asymptomatic). Last mammogram was performed 1 year and 2 months ago. History: Benign left mammotome panel of the left breast, April 09, 2012. Physical Findings: A clinical breast exam by your physician is recommended on an annual basis and results should be correlated with mammographic findings. MG 3D Screening Mammo W/Cad Bilateral CC and MLO view(s) were taken. Prior study comparison: July 05, 2017, bilateral MG 3d screening mammo w/cad. June 29, 2016, bilateral MG 3d screening mammo w/cad. The breast tissue is extremely dense which could obscure a lesion on mammography. Benign calcifications. No suspicious abnormality. Left biopsy marker noted. No significant changes when compared with prior studies. ASSESSMENT: Benign, BI-RAD 2 RECOMMENDATION: Routine screening mammogram of both breasts in 1 year.
== END | disposition home or self-care (01) ==
LOC: RADMAMWWP 07:27
PROVIDERS: ATTEND Obstetrics & Gynecology
DX: Z12.31 Encounter for screening mammogram for malignant neoplasm of breast (principal)
CPT/HCPCS: 77063; 77067

== ENCOUNTER 2019-08-26 08:15 | Emergency (ER) | payer OTHER ==
[2019-08-26 08:19] VITALS: RESP 18; TEMP 98.2
[2019-08-26] MEDS ORDERED: KETOROLAC 30 MG/ML 1 ML VIAL IM STA (08:36)
[2019-08-26] MEDS ORDERED: DIAZEPAM 5 MG/ML 2 ML INJ IM ONE (08:36)
--- NOTE | 2019-08-26 08:40 | ED ---
General Adult HPI - General Chief complaint: Back Pain/Injury Stated complaint: Back pain Time Seen by Provider: 08/26/19 08:21 Source: patient, RN notes reviewed Mode of arrival: ambulatory Limitations: physical limitation - History of Present Illness Initial comments: 49-year-old female with a past medical history of hypertension presents to the emergency department for a chief complaint of low back pain. Patient states this started 4 days ago. States it is across her low back. States that yesterday was more on the right side however today it is more on the lower left side. States that the pain worsens with movement. States pain worsens with walking and trying to lie back in bed. States that this morning after sleeping all night the pain had worsened again. States she saw her primary care provider yesterday who did a urine and did not see any infection. Patient hasn't had fevers or chills. She denies nausea vomiting diarrhea. Denies any loss of sensation in the lower extremities. Denies any lower extremity weakness. No numbness or tingling the greater buttock. No changes in bladder or bowel movements.Patient has no other complaints at this time including shortness of breath, chest pain, abdominal pain, nausea or vomiting, headache, or visual changes. - Related Data Home Medications Medication Instructions Recorded Confirmed LORazepam [Ativan] 0.5 mg PO DAILY PRN 05/09/16 01/17/17 Hydrochlorothiazide 25 mg PO DAILY 01/17/17 01/17/17 Allergies Allergy/AdvReac Type Severity Reaction Status Date / Time meperidine HCl [From Demerol] Allergy Severe Nausea & Verified 08/26/19 08:20 Vomiting steroid Allergy Severe Nausea & Uncoded 08/26/19 08:20 Vomiting Review of Systems ROS Statement: Those systems with pertinent positive or pertinent negative responses have been documented in the HPI. ROS Other: All systems not noted in ROS Statement are negative. Past Medical History Past Medical History: Hypertension History of Any Multi-Drug Resistant Organisms: None Reported Past Surgical History: Section, Orthopedic Surgery Additional Past Surgical History / Comment(s): left knee Past Anesthesia/Blood Transfusion Reactions: Postoperative Nausea & Vomiting (PONV) Past Psychological History: Anxiety Smoking Status: Never smoker Past Alcohol Use History: None Reported Past Drug Use History: None Reported - Past Family History Mother Family Medical History: No Reported History General Exam Limitations: physical limitation General appearance: alert, in no apparent distress Head exam: Present: atraumatic, normocephalic, normal inspection Eye exam: Present: normal appearance, PERRL, EOMI. Absent: scleral icterus, conjunctival injection, periorbital swelling ENT exam: Present: normal exam, mucous membranes moist Neck exam: Present: normal inspection. Absent: tenderness, meningismus, lymphadenopathy Respiratory exam: Present: normal lung sounds bilaterally. Absent: respiratory distress, wheezes, rales, rhonchi, stridor Cardiovascular Exam: Present: regular rate, normal rhythm, normal heart sounds. Absent: systolic murmur, diastolic murmur, rubs, gallop, clicks GI/Abdominal exam: Present: soft, normal bowel sounds. Absent: distended, tenderness, guarding, rebound, rigid Extremities exam: Present: normal capillary refill (cap refill < 2 seconds, DP pulses 2+), other (sensation intact in BLE) Back exam: Present: other (45 degrees flexion which ellicits pain, extension ellicits pain). Absent: full ROM, vertebral tenderness Neurological exam: Present: normal gait (ambulatory, ) Course Vital Signs 08/26/19 08:17 Temperature 98.2 F Pulse Rate 107 H Respiratory 18 Rate Blood Pressure 125/72 O2 Sat by Pulse 97 Oximetry Medical Decision Making - Medical Decision Making patient presents for back pain that is likely muskuloskeletal in nature. Pain is much worse with movement and flexion as well as extension. She is able to ambulate. No weakness, loss of sensation in the lower extremities. No bladder or bowel changes. No tingling of the groin or buttock. DP pulses 2+ in lower extremities. Urinalysis does not show any evidence of infection or red blood cells. Patient was given Toradol and Valium and had significant improvement in pain. Patient will be discharged home with continuing to take Motrin and will be given lidocaine patches as well as Flexeril. Will return if she has any worsening symptoms. - Lab Data Lab Results 08/26/19 Range/Units 09:00 Urine Color Yellow Urine Appearance Cloudy H (Clear) Urine pH 5.5 (5.0-8.0) Ur Specific [place] 1.020 (1.001-1.035) Urine Protein Negative (Negative) Urine Glucose (UA) Negative (Negative) Urine Ketones Negative (Negative) Urine Blood Negative (Negative) Urine Nitrite Negative (Negative) Urine Bilirubin Negative (Negative) Urine Urobilinogen <2.0 (<2.0) mg/dL Ur Leukocyte Esterase Negative (Negative) Urine RBC 1 (0-5) /hpf Urine WBC 1 (0-5) /hpf Ur Squamous Epith Cells 4 (0-4) /hpf Urine Bacteria Rare H (None) /hpf Urine Mucus Rare H (None) /hpf Disposition Clinical Impression: Mechanical back pain Disposition: HOME SELF-CARE Condition: Good Instructions (If sedation given, give patient instructions): Acute Low Back Pain (ED) Additional Instructions: Please take motrin and tylenol for pain. Take Flexeril as directed. Do not drive or operate machinery while taking Flexeril as it may cause drowsiness. Use lidocaine patches as directed. Follow-up with primary care in 1-2 days. Return to the emergency department if you have any worsening symptoms including weakness or numbness of the lower extremities, bladder or bowel changes, fevers, or abdominal pain Is patient prescribed a controlled substance at d/c from ED?: No Referrals: Caryl Toribio MD [Primary Care Provider] - 1-2 days Time of Disposition: 09:41
[2019-08-26 09:22] LABS: Appearance,Urine Cloudy (Clear); Bacteria,Urine Rare /hpf; Bilirubin,Urine Negative (Negative); Blood,Urine Negative (Negative); Color,Urine Yellow; Glucose,Urine (UA) Negative (Negative); Ketones,Urine Negative (Negative); Leukocyte Esterase,Urine Negative (Negative); Mucus,Urine Rare /hpf; Nitrite,Urine Negative (Negative); PH, Urine 5.5 (5.0-8.0); Protein,Urine Negative (Negative); RBC,Urine 1 /hpf (0-5); Squamous Epithelial Cell,Urine 4 /hpf (0-4); Urobilinogen,Urine <2.0 mg/dL (<2.0); WBC,Urine 1 /hpf (0-5)
[2019-08-26 09:59] VITALS: BP 142/65; PULSE 75
== END 2019-08-26 09:59 | disposition home or self-care (01) ==
LOC: EC 08:15
DX: M54.5 Low back pain (principal); I10 Essential (primary) hypertension; Z79.899 Other long term (current) drug therapy; Z88.5 Allergy status to narcotic agent; Z88.8 Allergy status to other drugs, medicaments and biological substances
CPT/HCPCS: 81001; 99283; J3360; J1885; 96372

== ENCOUNTER → 2019-08-28 | Outpatient (CLI) | payer OTHER ==
--- NOTE | 2019-08-29 13:29 | MM ---
Reason for exam: screening (asymptomatic). Last mammogram was performed 1 year ago. History: Benign left mammotome panel of the left breast, April 09, 2012. Physical Findings: A clinical breast exam by your physician is recommended on an annual basis and results should be correlated with mammographic findings. MG 3D Screening Mammo W/Cad Bilateral CC and MLO view(s) were taken. Prior study comparison: August 26, 2018, bilateral MG 3d screening mammo w/cad. July 05, 2017, bilateral MG 3d screening mammo w/cad. The breast tissue is extremely dense which could obscure a lesion on mammography. Previous mammotome biopsy in the left breast. No significant changes when compared with prior studies. ASSESSMENT: Benign, BI-RAD 2 RECOMMENDATION: Routine screening mammogram of both breasts in 1 year.
== END ==
LOC: RADMAMWWP 09:56
PROVIDERS: ATTEND Obstetrics & Gynecology
DX: Z12.31 Encounter for screening mammogram for malignant neoplasm of breast (principal)
CPT/HCPCS: 77063; 77067

== ENCOUNTER → 2020-09-29 | Outpatient (CLI) | payer OTHER ==
--- NOTE | 2020-09-29 17:58 | US ---
EXAMINATION TYPE: US pelvis complete transvag DATE OF EXAM: 09/29/2020 COMPARISON: CT 2017 CLINICAL HISTORY: N92.1 MENORRHAGIA WITH IRREGULAR MENSES. TECHNIQUE: Transvaginal (TV) and Transabdominal (TA) . Transabdominal sonographic images of the pel vis were acquired. Transvaginal sonographic images were medically necessary to better assess the fol lowing anatomy: Ovaries and endometrium. Date of LMP: 09/05/2020 and still on it. EXAM MEASUREMENTS: Uterus: 11.7 x 6.6 x 8.1 cm Endometrial Stripe: 2.7 cm Right Ovary: 2.7 x 3.4 x 3.5 cm Left Ovary: 5.7 x 3.8 x 3.1 cm 1. Uterus: Anteverted wnl 2. Endometrium: grossly thickened 3. Right Ovary: wnl 4. Left Ovary: only seen transabdominally, cyst measures 3.8 x 2.6 x 3.7 cm. 5. Bilateral Adnexa: wnl 6. Posterior cul-de-sac: no free fluid IMPRESSION: 1. Left ovarian cyst. Follow-up in 6 weeks is recommended. 2. Thickened endometrium
== END | disposition home or self-care (01) ==
LOC: RADUSWWP 16:00
PROVIDERS: ATTEND Obstetrics & Gynecology
DX: N83.202 Unspecified ovarian cyst, left side (principal); R93.89 Abnormal findings on diagnostic imaging of other specified body structures
CPT/HCPCS: 76830; 76856

== ENCOUNTER 2020-10-05 06:10 | Emergency (ER) | payer OTHER ==
[2020-10-05 06:22] VITALS: TEMP 98.1
--- NOTE | 2020-10-05 06:45 | ED ---
General Adult HPI - General Chief complaint: Vaginal Bleeding Stated complaint: vaginal bleeding Time Seen by Provider: 10/05/20 06:24 Source: patient, family, RN notes reviewed Mode of arrival: ambulatory Limitations: no limitations - History of Present Illness Initial comments: This a 50-year-old female presents emergency Department with chief complaint of excessive vaginal bleeding. Patient states that she started with her menstrual cycle on September 05. She states that she missed one prior mental cycle. Patient states that she was having excessive bleeding called her [employer] Dr. Brown who ordered an ultrasound showed thickened endometrial lining. Patient was started on 10 days of Provera. Patient states that she finishes on Sunday states that she had increasing heavy bleeding throughout the weekend was given a prescription yesterday for Provera with states that the bleeding has continued heavy throughout the night. She states she is using a large pad one pad every hour. She states she is passing clots and states that she feels very weak at this time. Patient is scheduled see Dr. Brown tomorrow. She denies any significant abdominal pain no headache, chest pain, dysuria, constipation diarrhea. - Related Data Home Medications Medication Instructions Recorded Confirmed LORazepam [Ativan] 0.5 mg PO DAILY PRN 05/09/16 10/05/20 hydroCHLOROthiazide 25 mg PO DAILY 01/17/17 10/05/20 Ibuprofen [Motrin Ib] 400 mg PO Q8H PRN 10/05/20 10/05/20 Provera Unknown Dose 1 tab PO DAILY 10/05/20 10/05/20 Allergies Allergy/AdvReac Type Severity Reaction Status Date / Time meperidine HCl [From Demerol] Allergy Severe Nausea & Verified 10/05/20 07:28 Vomiting steroid Allergy Severe Nausea & Uncoded 10/05/20 06:22 Vomiting Review of Systems ROS Statement: Those systems with pertinent positive or pertinent negative responses have been documented in the HPI. ROS Other: All systems not noted in ROS Statement are negative. Past Medical History Past Medical History: Hypertension History of Any Multi-Drug Resistant Organisms: None Reported Past Surgical History: Section, Orthopedic Surgery Additional Past Surgical History / Comment(s): left knee Past Anesthesia/Blood Transfusion Reactions: Postoperative Nausea & Vomiting (PONV) Past Psychological History: Anxiety Smoking Status: Never smoker Past Alcohol Use History: None Reported Past Drug Use History: None Reported - Past Family History Mother Family Medical History: No Reported History General Exam Limitations: no limitations General appearance: alert, in no apparent distress Head exam: Present: atraumatic, normocephalic, normal inspection Eye exam: Present: normal appearance, PERRL, EOMI. Absent: scleral icterus, conjunctival injection, periorbital swelling ENT exam: Present: normal exam, normal oropharynx, mucous membranes moist Neck exam: Present: normal inspection, full ROM. Absent: tenderness, meningismus, lymphadenopathy Respiratory exam: Present: normal lung sounds bilaterally. Absent: respiratory distress, wheezes, rales, rhonchi, stridor Cardiovascular Exam: Present: normal rhythm, tachycardia, normal heart sounds. Absent: systolic murmur, diastolic murmur, rubs, gallop, clicks GI/Abdominal exam: Present: soft, normal bowel sounds. Absent: distended, tenderness, guarding, rebound, rigid Course Vital Signs 10/05/20 06:15 Temperature 98.1 F Pulse Rate 123 H Respiratory 18 Rate Blood Pressure 155/88 O2 Sat by Pulse 97 Oximetry Medical Decision Making - Medical Decision Making Patient's hemoglobin is stable 12.7. Patient has had prior ultrasound which showed thickened endometrial lining. has dysfunction uterine bleeding. Patient's case discussed with her [employer] Dr. Brown in which patient has an appointment scheduled for tomorrow. She recommended patient continue her Provera. She is return emergency from for any worsening change in symptoms. - Lab Data Result diagrams: 10/05/20 06:35 Lab Results 10/05/20 10/05/20 10/05/20 Range/Units 06:35 06:35 06:35 WBC 11.9 H (3.8-10.6) k/uL RBC 4.12 (3.80-5.40) m/uL Hgb 12.7 (11.4-16.0) gm/dL Hct 37.8 (34.0-46.0) % MCV 91.6 (80.0-100.0) fL MCH 30.9 (25.0-35.0) pg MCHC 33.7 (31.0-37.0) g/dL RDW 13.0 (11.5-15.5) % Plt Count 304 (150-450) k/uL MPV 7.9 Neutrophils % 77 % Lymphocytes % 15 % Monocytes % 4 % Eosinophils % 1 % Basophils % 1 % Neutrophils # 9.2 H (1.3-7.7) k/uL Lymphocytes # 1.8 (1.0-4.8) k/uL Monocytes # 0.5 (0-1.0) k/uL Eosinophils # 0.2 (0-0.7) k/uL Basophils # 0.1 (0-0.2) k/uL PT 9.8 (9.0-12.0) sec INR 0.9 (<1.2) APTT 22.3 (22.0-30.0) sec Urine Color Red Urine Appearance Turbid H (Clear) Urine RBC >182 H (0-5) /hpf Urine WBC 90 H (0-5) /hpf Urine Mucus Few H (None) /hpf Urine HCG, Qual (Not Detectd) 10/05/20 Range/Units 06:35 WBC (3.8-10.6) k/uL RBC (3.80-5.40) m/uL Hgb (11.4-16.0) gm/dL Hct (34.0-46.0) % MCV (80.0-100.0) fL MCH (25.0-35.0) pg MCHC (31.0-37.0) g/dL RDW (11.5-15.5) % Plt Count (150-450) k/uL MPV Neutrophils % % Lymphocytes % % Monocytes % % Eosinophils % % Basophils % % Neutrophils # (1.3-7.7) k/uL Lymphocytes # (1.0-4.8) k/uL Monocytes # (0-1.0) k/uL Eosinophils # (0-0.7) k/uL Basophils # (0-0.2) k/uL PT (9.0-12.0) sec INR (<1.2) APTT (22.0-30.0) sec Urine Color Urine Appearance (Clear) Urine RBC (0-5) /hpf Urine WBC (0-5) /hpf Urine Mucus (None) /hpf Urine HCG, Qual Not Detected (Not Detectd) Disposition Clinical Impression: Dysfunctional uterine bleeding, Menorrhagia Disposition: HOME SELF-CARE Condition: Stable Instructions (If sedation given, give patient instructions): Menorrhagia (ED) Additional Instructions: Please return to the Emergency Department if symptoms worsen or any other concerns. Is patient prescribed a controlled substance at d/c from ED?: No Referrals: Caryl Toribio MD [Primary Care Provider] - 1-2 days Time of Disposition: 07:57
[2020-10-05 07:11] LABS: INR 0.9 (<1.2); Partial Thromboplastin Time 22.3 sec (22.0-30.0); Prothrombin Time 9.8 sec (9.0-12.0)
[2020-10-05 07:22] LABS: Mucus,Urine Few /hpf
[2020-10-05 07:23] LABS: Appearance,Urine Turbid (Clear); Color,Urine Red
[2020-10-05 07:24] LABS: Basophils # (A) 0.1 k/uL (0-0.2); Basophils % (A) 1 %; Eosinophils # (A) 0.2 k/uL (0-0.7); Eosinophils % (A) 1 %; HCT 37.8 % (34.0-46.0); HGB 12.7 gm/dL (11.4-16.0); Lymphocytes # (A) 1.8 k/uL (1.0-4.8); Lymphocytes % (A) 15 %; MCH 30.9 pg (25.0-35.0); MCHC 33.7 g/dL (31.0-37.0); MCV 91.6 fL (80.0-100.0); Mean Platelet Volume 7.9; Monocytes # (A) 0.5 k/uL (0-1.0); Monocytes % (A) 4 %; Neutrophils # (A) 9.2 k/uL (1.3-7.7); Neutrophils % (A) 77 %; Platelet Count 304 k/uL (150-450); RBC 4.12 m/uL (3.80-5.40); RBC,Urine >182 /hpf (0-5); WBC 11.9 k/uL (3.8-10.6); WBC,Urine 90 /hpf (0-5)
[2020-10-05 08:19] VITALS: BP 139/82; PULSE 97; RESP 19
[2020-10-05 08:28] LABS: Albumin 4.3 g/dL (3.5-5.0); Calcium 9.6 mg/dL (8.4-10.2); Potassium 3.3 mmol/L (3.5-5.1); Total Bilirubin 0.8 mg/dL (0.2-1.3); Total Protein 7.6 g/dL (6.3-8.2)
== END 2020-10-05 08:18 | disposition home or self-care (01) ==
LOC: EC 06:10
DX: N93.8 Other specified abnormal uterine and vaginal bleeding (principal); N92.0 Excessive and frequent menstruation with regular cycle; R00.0 Tachycardia, unspecified; I10 Essential (primary) hypertension; F41.9 Anxiety disorder, unspecified; Z79.899 Other long term (current) drug therapy; Z88.5 Allergy status to narcotic agent; Z88.8 Allergy status to other drugs, medicaments and biological substances
CPT/HCPCS: 36415; 80053; 81001; 81025; 85025; 85610; 85730; 87086; 99284

== ENCOUNTER 2020-10-07 06:53 | Day surgery (SDC) | payer OTHER ==
[2020-10-06 13:19] VITALS: BMI 36.0
--- NOTE | 2020-10-06 19:59 | P.HPOB ---
History of Present Illness H&P Date: 10/06/20 Chief Complaint: Menorrhagia with irregular cycle, endometrial thickening This is a 50 y.o. female, 2, para 2, who presents for dilatation and curettage with hysteroscopy due to menorrhagia with irregular cycle and endometrial thickening on ultrasound. She missed her menses in July and then started bleeding heavy on 09/05/2020. It slowed and then became very heavy on 09/21/2020. She was given Provera for 10 days and this did slow her bleeding, but it never stopped. She finished Provera on Sunday, but then started bleeding heavier again this weekend. She went to ER after she was up all night changing pads and tampons every 45 minutes. She is also passing large clots. Ultrasound showed uterus 11.7 x 6.6. x 8.1 cm with endometrial thickness of 2.7 cm. She also has a simple left ovarian cyst measuring 3.8 cm. OB Hx: . History of 1 section and 1 vaginal delivery. 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 had vasectomy. 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 Review of Systems Constitutional: Denies chills, Denies fever Eyes: denies blurred vision, denies pain Ears, nose, mouth and throat: Denies headache, Denies sore throat Cardiovascular: Denies chest pain, Denies shortness of breath Respiratory: Denies cough Gastrointestinal: Reports abdominal pain Genitourinary: Reports abnormal vaginal bleeding, Reports menorrhagia, Reports pelvic pain Menstruation: Reports menses 8 or > days, Reports period heavy Musculoskeletal: Denies myalgias Integumentary: Denies pruritus, Denies rash Neurological: Denies numbness, Denies weakness Psychiatric: Reports anxiety, Denies depression Past Medical History Past Medical History: Hypertension Additional Past Medical History / Comment(s): occasional vertigo, heavy period since History of Any Multi-Drug Resistant Organisms: None Reported Past Surgical History: Section, Orthopedic Surgery Additional Past Surgical History / Comment(s): left knee arthroscopy Past Anesthesia/Blood Transfusion Reactions: Motion Sickness, Postoperative Nausea & Vomiting (PONV) Past Psychological History: Anxiety Smoking Status: Never smoker Past Alcohol Use History: None Reported Past Drug Use History: None Reported - Past Family History Mother Family Medical History: No Reported History Medications and Allergies Home Medications Medication Instructions Recorded Confirmed Type LORazepam [Ativan] 0.5 mg PO DAILY PRN 05/09/16 10/07/20 History hydroCHLOROthiazide 25 mg PO 1700 01/17/17 10/07/20 History Ibuprofen [Motrin Ib] 400 mg PO Q8H PRN 10/05/20 10/07/20 History Medroxyprogesterone Acetate 10 mg PO 1400 10/05/20 10/07/20 History [Provera] Allergies Allergy/AdvReac Type Severity Reaction Status Date / Time meperidine HCl [From Demerol] Allergy Severe Nausea & Verified 10/07/20 07:28 Vomiting bupropion [From Wellbutrin] AdvReac Rash/Hives Verified 10/07/20 07:28 steroid Allergy Severe Nausea & Uncoded 10/07/20 07:28 Vomiting Exam Osteopathic Statement: *. No significant issues noted on an osteopathic structural exam other than those noted in the History and Physical/Consult. Intake and Output 10/06/20 10/06/20 10/06/20 06:59 14:59 22:59 Other: Weight 104.326 kg HEENT: within normal limits Heart: regular rate and rhythm Lungs: clear to auscultation bilaterally Abdomen: soft, non-tender Pelvic: uterus sl. enlarged, retroverted, non-tender with no adnexal masses Extremities: neg. Zachary's Assessment and Plan (1) Menorrhagia with irregular cycle Current Visit: No Status: Acute Code(s): N92.1 - EXCESSIVE AND FREQUENT MENSTRUATION WITH IRREGULAR CYCLE SNOMED Code(s): 522188127 (2) Endometrial thickening on ultrasound Current Visit: No Status: Acute Code(s): R93.89 - ABNORMAL FINDINGS ON DX IMAGING OF OTH BODY STRUCTURES SNOMED Code(s): 724184583 Plan: Proceed with dilatation and curettage with hysteroscopy. I have discussed the risks, benefits, and alternative therapies for the above- mentioned procedure and for both sedation/anesthesia as well as necessary blood products administration, if indicated, as they pertain to this patient. The patient has indicated her understanding and acceptance of the risks and procedures discussed.
[~2020-10-07 06:53] MED LIST: DEXAMETHASONE SOD PHOSPHATE 4 MG/ML 1 ML VIAL IV ONE; LACTATED RINGERS 1,000 ML IV SCH; ONDANSETRON 4 MG/2 ML VIAL IVP ONE; Pre Op ABX Message 1 EACH MISC MISCELLANE ONE
[2020-10-07] MEDS ORDERED: HYDROmorphone 0.5 MG/0.5 ML SYRINGE IVP PRN (07:00)
[2020-10-07] MEDS ORDERED: LACTATED RINGERS 1,000 ML IV ONE ×2 (07:10)
[2020-10-07] MEDS ORDERED: SCOPOLAMINE 1.5MG/72HR PATCH TRANSDERM ONE (07:45)
[2020-10-07] MEDS ORDERED: MIDAZOLAM 2 MG/2 ML VIAL IVP ONE (08:09)
[2020-10-07] MEDS ORDERED: LIDOCAINE 1% INJ 10MG/ML (20 ML MDV) ONE (08:45)
[2020-10-07] MEDS ORDERED: PROPOFOL 10 MG/ML 20 ML VIAL IV ONE (08:45)
[2020-10-07] MEDS ORDERED: KETOROLAC 15 MG/ML 1 ML VIAL ONE (08:45)
[2020-10-07] MEDS ORDERED: fentaNYL (PF) 50 MCG/ML 2 ML AMP ONE (08:45)
[2020-10-07] MEDS ORDERED: MIDAZOLAM 2 MG/2 ML VIAL ONE (08:45)
--- NOTE | 2020-10-07 09:15 | P.OP ---
Date of Procedure: 10/07/20 Preoperative Diagnosis: menorrhagia with irregular cycle Endometrial thickening Postoperative Diagnosis: same Procedure(s) Performed: dilation and curettage with hysteroscopy Anesthesia: other (mask general) Surgeon: Nancy Brown Estimated Blood Loss (ml): 10 Pathology: other (Endometrial curettings) Condition: stable Disposition: same day Indications for Procedure: This is a 50 y.o. female, 2, para 2, who presents for dilatation and curettage with hysteroscopy due to menorrhagia with irregular cycle and endometrial thickening on ultrasound. She missed her menses in July and then started bleeding heavy on 09/05/2020. It slowed and then became very heavy on 09/21/2020. She was given Provera for 10 days and this did slow her bleeding, but it never stopped. She finished Provera on Sunday, but then started bleeding heavier again this weekend. She went to ER after she was up all night changing pads and tampons every 45 minutes. She is also passing large clots. Ultrasound showed uterus 11.7 x 6.6. x 8.1 cm with endometrial thickness of 2.7 cm. She also has a simple left ovarian cyst measuring 3.8 cm. Operative Findings: Uterus is anteverted, sounded to 11 cm. Upon hysteroscopy, a large amount of blood and clot was noted but no specific abnormalities were visualized due to the blood. A moderate amount of endometrial curettings are obtained. No polyps are noted. There is grade 1 uterine prolapse and grade 1 cystocele. She has grade 2 rectocele noted. Description of Procedure: The patient is taken to the operating room where she is placed in the dorsal lithotomy position. She is prepped and draped in the normal sterile fashion. Examination is performed under anesthesia. Uterus is found to be anteverted slightly enlarged, with no adnexal masses palpated. There is grade 1 uterine prolapse and grade 1 cystocele along with grade 2 rectocele. Bladder is drained with a catheter and then removed. Next a weighted speculum was placed in the patient's vagina and a right angle retractor was used to visualize the cervix. The anterior lip of the cervix is grasped with a single-tooth tenaculum. The uterus is sounded to 11 cm. Cervix is gently dilated with Schofield dilators until a hysteroscope could be passed. Hysteroscopy is performed using normal saline. The above noted findings are made and pictures are taken. The cervix is gently dilated further and a polyp forceps was introduced with minimal tissue obtained. Next a medium-size sharp curet was introduced and sharp curettage was performed until a gritty texture was noted. A moderate amount of endometrial curettings a nd blood clot were noted. No specific polyps were palpated or visualized.all instruments are removed from the vagina. All sponge counts are correct. The patient is then taken to recovery room in stable condition.
[2020-10-07 09:29] VITALS: TEMP 98
[2020-10-07 10:50] VITALS: BP 114/74; PULSE 82; RESP 16
== END 2020-10-07 10:44 | disposition home or self-care (01) ==
LOC: OR 06:53
PROVIDERS: ATTEND Obstetrics & Gynecology
DX: N92.1 Excessive and frequent menstruation with irregular cycle (principal); N84.0 Polyp of corpus uteri; N83.292 Other ovarian cyst, left side; R93.89 Abnormal findings on diagnostic imaging of other specified body structures; I10 Essential (primary) hypertension; R42 Dizziness and giddiness; Z98.891 History of uterine scar from previous surgery; Z98.890 Other specified postprocedural states; F41.9 Anxiety disorder, unspecified; K21.9 Gastro-esophageal reflux disease without esophagitis; Z79.899 Other long term (current) drug therapy; Z88.5 Allergy status to narcotic agent; Z88.8 Allergy status to other drugs, medicaments and biological substances
CPT/HCPCS: 81025; 88305; 84703; 58558; J2250; J2405; J2001; J3010; J1885; J2704

== ENCOUNTER → 2020-10-29 | Outpatient (CLI) | payer OTHER ==
--- NOTE | 2020-11-01 11:58 | MM ---
Reason for exam: screening (asymptomatic). Last mammogram was performed 1 year and 2 months ago. History: Benign left mammotome panel of the left breast, April 09, 2012. Took hormonal contraceptives for 10 years beginning at age 21. Physical Findings: A clinical breast exam by your physician is recommended on an annual basis and results should be correlated with mammographic findings. MG 3D Screening Mammo W/Cad Bilateral CC and MLO view(s) were taken. Prior study comparison: August 28, 2019, bilateral MG 3d screening mammo w/cad. August 26, 2018, bilateral MG 3d screening mammo w/cad. The breast tissue is heterogeneously dense. This may lower the sensitivity of mammography. There are benign appearing round calcifications bilaterally. Previous mammotome biopsy in the left breast. There is chronic nodularity in the right breast. There is no discrete abnormality. ASSESSMENT: Benign, BI-RAD 2 RECOMMENDATION: Routine screening mammogram of both breasts in 1 year.
== END ==
LOC: RADMAMWWP 07:07
PROVIDERS: ATTEND Obstetrics & Gynecology
DX: Z12.31 Encounter for screening mammogram for malignant neoplasm of breast (principal)
CPT/HCPCS: 77063; 77067

== ENCOUNTER → 2021-06-17 | Outpatient (CLI) | payer OTHER ==
[~2021-06-17] MED LIST changes: -DEXAMETHASONE SOD PHOSPHATE 4 MG/ML 1 ML VIAL IV ONE; -LACTATED RINGERS 1,000 ML IV SCH; -ONDANSETRON 4 MG/2 ML VIAL IVP ONE; -Pre Op ABX Message 1 EACH MISC MISCELLANE ONE; +SODIUM CHLORIDE 0.9% 500 ML 500 ML in EMPTY BAG 1 BAG IV PRN; +SODIUM FERRIC GLUCONAT-SUCROSE 125 MG in SODIUM CHLORIDE 0.9% 100 ML IVPB NR
[2021-06-17 07:54] VITALS: BP 134/84; PULSE 94; RESP 16; TEMP 98.3
[2021-06-17 09:54] LABS: HCT 27.2 % (34.0-46.0); HGB 8.5 gm/dL (11.4-16.0); Hypochromasia Moderate; MCH 23.4 pg (25.0-35.0); MCHC 31.2 g/dL (31.0-37.0); MCV 74.9 fL (80.0-100.0); Mean Platelet Volume 7.3; Microcytosis Slight; Platelet Count 291 k/uL (150-450); Poikilocytosis Slight; RBC 3.63 m/uL (3.80-5.40); RDW 15.5 % (11.5-15.5); WBC 5.3 k/uL (3.8-10.6)
== END | disposition home or self-care (01) ==
LOC: PROCWHC3 07:33
PROVIDERS: ATTEND Family Medicine
DX: D50.9 Iron deficiency anemia, unspecified (principal)
CPT/HCPCS: 85027; 96365; 36415; J2916

== ENCOUNTER → 2021-12-07 | Outpatient (CLI) | payer BC ==
--- NOTE | 2021-12-09 10:15 | MM ---
Reason for exam: screening (asymptomatic). Last mammogram was performed 1 year and 1 month ago. History: Benign left mammotome panel of the left breast, April 09, 2012. Took hormonal contraceptives for 10 years beginning at age 21. Physical Findings: A clinical breast exam by your physician is recommended on an annual basis and results should be correlated with mammographic findings. MG 3D Screening Mammo W/Cad Bilateral CC and MLO view(s) were taken. Technologist: RT Kathy (R)(M) Prior study comparison: October 29, 2020, bilateral MG 3d screening mammo w/cad. August 28, 2019, bilateral MG 3d screening mammo w/cad. The breast tissue is extremely dense which could obscure a lesion on mammography. There are benign appearing round calcifications bilaterally. Previous mammotome biopsy in the left breast. There is chronic nodularity in the left breast, anterior position, inner quadrant, stable. There is no discrete abnormality. ASSESSMENT: Benign, BI-RAD 2 RECOMMENDATION: Routine screening mammogram of both breasts in 1 year.
== END | disposition home or self-care (01) ==
LOC: RADMAMWWP 06:54
PROVIDERS: ATTEND Obstetrics & Gynecology
DX: Z12.31 Encounter for screening mammogram for malignant neoplasm of breast (principal)
CPT/HCPCS: 77063; 77067

== ENCOUNTER → 2021-12-22 | Outpatient (CLI) | payer BC ==
[2021-12-22 14:32] LABS: Basophils # (A) 0.05 X 10*3/uL (0.00-0.10); Basophils % (A) 0.9 %; Eosinophils # (A) 0.09 X 10*3/uL (0.04-0.35); Eosinophils % (A) 1.6 %; HCT 35.8 % (37.2-46.3); HGB 11.2 g/dL (12.0-15.0); Immature Grans, Automated 0.5 %; Lymphocytes # (A) 1.54 X 10*3/uL (0.90-5.00); Lymphocytes % (A) 27.1 %; MCH 27.6 pg (27.0-32.0); MCHC 31.3 g/dL (32.0-37.0); MCV 88.2 fL (80.0-97.0); Mean Platelet Volume 11.3 fL (9.5-12.2); Monocytes # (A) 0.42 X 10*3/uL (0.20-1.00); Monocytes % (A) 7.4 %; NRBC Per 100 WBC 0 /100 WBCS (0.0-0.0); Neutrophils # (A) 3.56 X 10*3/uL (1.80-7.70); Neutrophils % (A) 62.5 %; Platelet Count 262 X 10*3/uL (140-440); RBC 4.06 X 10*6/uL (4.10-5.20); RDW 13.5 % (11.5-14.5); WBC 5.69 X 10*3/uL (4.50-10.00)
[2021-12-22 15:17] LABS: African American GFR (CKD) 81.3 (60.0-200.0); Anion Gap 11.4 mmol/L (10.00-18.00); BUN/Creat Ratio 13.55 Ratio (12.00-20.00); Blood Urea Nitrogen 12.9 mg/dL (9.0-27.0); Calcium 8.8 mg/dL (8.7-10.3); Carbon Dioxide 23.9 mmol/L (20.0-27.5); Non-African American GFR(CKD) 70.2 (60.0-200.0); Potassium 3.3 mmol/L (3.5-5.5)
== END | disposition home or self-care (01) ==
LOC: LABPAT 07:16
PROVIDERS: ATTEND Obstetrics & Gynecology
DX: Z01.812 Encounter for preprocedural laboratory examination (principal)
CPT/HCPCS: 36415; 80048; 85025

== ENCOUNTER 2021-12-30 05:57 | Inpatient (IN) | payer BC ==
[2021-12-27 12:38] VITALS: BMI 36.8
--- NOTE | 2021-12-29 18:21 | P.HPOB ---
History of Present Illness H&P Date: 12/29/21 Chief Complaint: Menorrhagia with irregular cycle This is a 51 y.o. female, 2, para 2, who presents for total abdominal hysterectomy with bilateral salpingooophorectomy due to menorrhagia with irregular cycles. She had a D&C in September, which showed breakdown type endometrium and endometrial polyp. Her uterus was enlarged to 11 cm at that time. Her ultrasound showed uterus measuring 11.7 x 6.6 x 8.1 cm, with endometrial thickness of 2.7 cm, and a left ovarian cyst measuring 3.8 cm. Since her D&C, she continues to have heavy, irregular bleeding and clotting. She had no periods from March to June, but bled almost 2 months for February & March. She then bled from June through September almost constantly. She started on control pills in September and this did stop her bleeding initially, but she continues to have breakthrough bleeding and does not want to stay on control pills. OB Hx: . History of 1 vaginal delivery and 1 section. 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 Her has had a vasectomy. Social Hx: . 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 Review of Systems Constitutional: Denies chills, Denies fever Eyes: denies blurred vision, denies pain Ears, nose, mouth and throat: Denies headache, Denies sore throat Cardiovascular: Denies chest pain, Denies shortness of breath Respiratory: Denies cough Gastrointestinal: Denies abdominal pain, Denies diarrhea, Denies nausea, Denies vomiting Genitourinary: Reports abnormal vaginal bleeding, Reports dysmenorrhea, Reports menorrhagia, Reports pelvic pain Menstruation: Reports menses 8 or > days, Reports period heavy Musculoskeletal: Reports low back pain Integumentary: Denies pruritus, Denies rash Neurological: Denies numbness, Denies weakness Psychiatric: Reports anxiety, Reports irritability Endocrine: Reports fatigue, Reports weight change Hematologic/Lymphatic: Reports easy bruising Past Medical History Past Medical History: GERD/Reflux, Hypertension Additional Past Medical History / Comment(s): occasional vertigo, HEAVY AND FREQUENT MENSES History of Any Multi-Drug Resistant Organisms: None Reported Past Surgical History: Section, Orthopedic Surgery Additional Past Surgical History / Comment(s): left knee arthroscopy. D/C Past Anesthesia/Blood Transfusion Reactions: Motion Sickness, Postoperative Nausea & Vomiting (PONV) Past Psychological History: Anxiety Smoking Status: Never smoker Past Alcohol Use History: None Reported Past Drug Use History: None Reported - Past Family History Mother Family Medical History: No Reported History Father Family Medical History: Cancer, Deep Vein Thrombosis (DVT), Pulmonary Embolus Medications and Allergies Home Medications Medication Instructions Recorded Confirmed Type LORazepam [Ativan] 0.5 mg PO DAILY PRN 05/09/16 12/30/21 History hydroCHLOROthiazide 25 mg PO 1700 01/17/17 12/30/21 History Ibuprofen [Motrin Ib] 400 mg PO Q8H PRN 10/05/20 12/27/21 History Blisovi-Fe 09/15 1 tab PO DAILY 12/27/21 12/27/21 History Allergies Allergy/AdvReac Type Severity Reaction Status Date / Time meperidine HCl [From Demerol] Allergy Severe Nausea & Verified 12/27/21 12:00 Vomiting bupropion [From Wellbutrin] AdvReac Rash/Hives Verified 12/27/21 12:00 steroid Allergy Severe Nausea & Uncoded 12/27/21 12:00 Vomiting Exam Osteopathic Statement: *. No significant issues noted on an osteopathic structural exam other than those noted in the History and Physical/Consult. HEENT: within normal limits Heart: regular rate and rhythm Lungs: clear to auscultation bilaterally Abdmomen: soft, non-tender Pelvic: uterus, anteverted, enlarged, with no adnexal masses or tenderness, grade 1 uterine prolapse, grade 1 cystocele, and grade 2 rectocele are noted. Extremities: negative Zachary's Results Result Diagrams: 12/30/21 06:38 Assessment and Plan (1) Menorrhagia with irregular cycle Current Visit: No Status: Acute Code(s): N92.1 - EXCESSIVE AND FREQUENT MENSTRUATION WITH IRREGULAR CYCLE SNOMED Code(s): 649131658 Plan: Proceed with total abdominal hysterectomy with bilateral salpingooophorectomy. I have discussed the risks, benefits, and alternative therapies for the above- mentioned procedure and for both sedation/anesthesia as well as necessary blood products administration, if indicated, as they pertain to this patient. The patient has indicated her understanding and acceptance of the risks and procedures discussed.
[~2021-12-30 05:57] MED LIST changes: +DEXAMETHASONE SOD PHOSPHATE 4 MG/ML 1 ML VIAL IV ONE; +MIDAZOLAM 2 MG/2 ML VIAL IV PRN; +ONDANSETRON 4 MG/2 ML VIAL IVP ONE; +SCOPOLAMINE 1 MG/72 HR PATCH TRANSDERM ONE; -SODIUM CHLORIDE 0.9% 500 ML 500 ML in EMPTY BAG 1 BAG IV PRN; -SODIUM FERRIC GLUCONAT-SUCROSE 125 MG in SODIUM CHLORIDE 0.9% 100 ML IVPB NR
[2021-12-30] MEDS: LACTATED RINGERS 1,000 ML IV SCH ×2 (06:42→21:42)
[2021-12-30] MEDS ORDERED: MIDAZOLAM 2 MG/2 ML VIAL IV ONE (07:16)
[2021-12-30] MEDS ORDERED: NEOSTIGMINE 1 MG/ML 10 ML VIAL ONE (07:20)
[2021-12-30] MEDS ORDERED: PROPOFOL 10 MG/ML 20 ML VIAL IV ONE (07:20)
[2021-12-30] MEDS ORDERED: GLYCOPYRROLATE 0.2 MG/ML 2 ML VIAL ONE (07:20)
[2021-12-30] MEDS ORDERED: SUCCINYLCHOLINE CHLORIDE 100 MG/5 ML SYR IV ONE (07:20)
[2021-12-30] MEDS ORDERED: MIDAZOLAM 2 MG/2 ML VIAL ONE (07:20)
[2021-12-30] MEDS ORDERED: ROCURONIUM 10 MG/ML (5 ML VIAL) IV ONE (07:20)
[2021-12-30] MEDS ORDERED: fentaNYL (PF) 50 MCG/ML 2 ML AMP ONE (07:20)
[2021-12-30] MEDS ORDERED: PHENYLEPHRINE-0.9% NACL SYG 1,000 MCG/10 ML SYRINGE ONE (07:20)
[2021-12-30] MEDS ORDERED: LIDOCAINE 2% INJ 20 MG/ML (2 ML VIAL) ONE (07:20)
[2021-12-30] MEDS ORDERED: MORPHINE SULFATE (PF) 0.3 MG/0.3 ML SYR ONE (07:20)
[2021-12-30] MEDS ORDERED: LACTATED RINGERS 1,000 ML IV ONE (08:51)
[2021-12-30] MEDS: HYDROmorphone 0.5 MG/0.5 ML SYRINGE IVP PRN ×3 (09:35→10:02)
[2021-12-30] MEDS ORDERED: KETOROLAC 15 MG/ML 1 ML VIAL IVP ONE (10:20)
--- NOTE | 2021-12-30 10:45 | P.ANPRN ---
Procedure Note - Anesthesia - Epidural/Spinal Spinal Time Out Performed: Yes Date of Procedure: 12/30/21 Procedure Start Time: 07:15 Procedure Stop Time: 07:20 Location of Patient: PreOp Indication: Acute Post-Operative Pain, Requested by Surgeon (tone) Sedation Type: Sedate with meaningful contact maintained Preparation: Sterile Prep Number of Attempts: 1 Position: Sitting Catheter: None Needle Guage: 25 Narrative: duramorph 300mcg, fentanyl 25 mcg Blood Aspirated: No Pain Paresthesia on Injection Noted: No Events: Uneventful and Well Tolerated
[2021-12-30] MEDS ORDERED: MORPHINE SULFATE 2 MG/ML SYRINGE IVP PRN (11:21)
[2021-12-30] MEDS ORDERED: NALOXONE 0.4 MG/ML 1 ML VIAL IV PRN (11:21)
[2021-12-30] MEDS ORDERED: ZOLPIDEM 5 MG TAB PO PRN (11:21)
[2021-12-30] MEDS ORDERED: ONDANSETRON 4 MG/2 ML VIAL IVP PRN (11:21)
[2021-12-30] MEDS ORDERED: METOCLOPRAMIDE 5 MG/ML 2 ML VIAL IVP PRN (11:21)
[2021-12-30] MEDS ORDERED: LORazepam 0.5 MG TAB PO PRN (11:21)
[2021-12-30] MEDS ORDERED: diphenhydrAMINE 50 MG/ML 1 ML VIAL IVP PRN (11:21)
[2021-12-30] MEDS ORDERED: hydroCHLOROthiazide 25 MG TAB PO SCH (17:00)
--- NOTE | 2021-12-30 18:34 | P.OP ---
Date of Procedure: 12/30/21 Preoperative Diagnosis: Menorrhagia with irregular cycle Postoperative Diagnosis: Menorrhagia with irregular cycle Procedure(s) Performed: Total abdominal hysterectomy with bilateral salpingo-oophorectomy Anesthesia: GET[facility], [facility] Surgeon: Nancy Brown Extrusion Die Coordinator #1: Nolvia Farrell Estimated Blood Loss (ml): 200 Pathology: other (Uterus with cervix, bilateral tubes and ovaries) Condition: stable Disposition: floor Indications for Procedure: This is a 51 y.o. female, 2, para 2, who presents for total abdominal hysterectomy with bilateral salpingooophorectomy due to menorrhagia with irregular cycles. She had a D&C in September, which showed breakdown type endometrium and endometrial polyp. Her uterus was enlarged to 11 cm at that time. Her ultrasound showed uterus measuring 11.7 x 6.6 x 8.1 cm, with endometrial thickness of 2.7 cm, and a left ovarian cyst measuring 3.8 cm. Since her D&C, she continues to have heavy, irregular bleeding and clotting. She had no periods from March to June, but bled almost 2 months for February & March. She then bled from June through September almost constantly. She started on control pills in September and this did stop her bleeding initially, but she continues to have breakthrough bleeding and does not want to stay on control pills. Operative Findings: Uterus is slightly bulky and enlarged. Endometriosis is noted with a small e ndometrioma noted on the left ovary. Both ovaries were adherent to the bowel and pelvic sidewall. Bladder is slightly adherent to the anterior uterus. The posterior cul-de-sac was slightly obliterated. Description of Procedure: The patient is taken to the operating room where she is placed in the dorsal supine position. She is prepped and draped in the normal sterile fashion including Cardenas catheter insertion and vaginal prep. A Pfannenstiel skin incision is made with a scalpel through her previous laparotomy scar. A second knife was used to carry the incision down to the underlying layer of fascia. The fascia was nicked in the midline with a scalpel and then extended laterally bilaterally with Galan scissors. The superior aspect of the fascial incision was grasped with Abbe clamps, elevated off the underlying rectus muscle in the midline and then cut with Galan scissors. The inferior aspect of the fascial incision was grasped with Abbe clamps, elevated off the underlying rectus muscle in the midline and then cut with Galan scissors. Next the peritoneum was identified and entered sharply with Galan scissors. It is extended superiorly and in fairly with Metzenbaum scissors with good visualization of underlying structures. Next the Tea retractor is placed in the bladder blade was inserted. The bowels were packed with a 3 yard laparotomy sponge. Next the uterus is brought up incision and the corneal regions are grasped with Amalia clamps on both sides. The left ovary and tube was adherent to the underlying bowel. This was both bluntly and sharply dissected away. The right ovary was slightly adherent to the posterior cul-de-sac. This was bluntly dissected. The infundibulopelvic ligament was clamped on either side with a Madai clamp, cut with Galan scissors, and sutured with 0 Vicryl suture in Madai transfixion stitches. The remaining uterine ovarian ligament and round ligament was clamped on either side with a Madai clamp, cut with Galan scissors, and sutured with 0 Vicryl suture in Madai transfixion stitches. The vesicouterine peritoneum was sharply dissected away from the bladder with Metzenbaum scissors and pushed inferiorly. The uterine arteries are clamped on either side with a Madai clamp. The uterine arteries are then cut with Galan scissors, and sutured with 0 Vicryl suture in Madai transfixion stitches. Next the cardinal ligaments were clamped on either side with Madai clamp, cut with Galan scissors, and sutured with 0 Vicryl suture in Madai transfixion stitches. The uterosacral ligaments are clamped on either side with Madai clamps, cut with Galan scissors, and sutured with 0 Vicryl suture in Madai transfixion stitches on either side. The edges of the vaginal cuff were clamped on either side with a Madai clamp, cut with Galan scissors, and sutured with 0 Vicryl suture in Madai transfixion stitches and held on either side. The vaginal mucosa was then cut just below the level of the cervix and the specimen is removed from the field. The edges of the vaginal cuff were held with Abbe clamps. Next the previously held corners of each side of the vaginal cuff were then whipstitched along the connective tissue on either side and brought through the corner of the cuff and tied. Next the vaginal cuff was sutured with 0 Vicryl suture in a running locked fashion. Good hemostasis was noted. Copious irrigation is carried out with warm saline. Good hemostasis is noted. All sponges are removed from the abdomen and sponge counts are correct. The peritoneum is then closed with 0 Vicryl suture in a running fashion. The muscle was then reapproximated with 0 Vicryl suture in interrupted fashion. The fascia layer is then closed with 0 PDS suture in a running fashion with the knots buried on either side and in the midline. Next the subcutaneous tissues closed with 2-0 Vicryl suture in a running fashion. The skin is closed with jeremiah. All sponge and needle counts are correct and the patient is taken to recovery room in stable condition.
[2021-12-30] MEDS: KETOROLAC 15 MG/ML 1 ML VIAL IVP PRN (18:53)
[2021-12-30] MEDS: SENNOSIDES-DOCUSATE SODIUM 1 EACH TAB PO SCH ×2 (21:19)
[2021-12-31] MEDS: KETOROLAC 15 MG/ML 1 ML VIAL IVP PRN (00:57)
[2021-12-31 07:17] LABS: Basophils % (A) 0 %; Eosinophils % (A) 0 %; HCT 30.8 % (34.0-46.0); Lymphocytes # (A) 1.3 k/uL (1.0-4.8); Lymphocytes % (A) 15 %; MCH 28.7 pg (25.0-35.0); MCHC 32.6 g/dL (31.0-37.0); MCV 88.2 fL (80.0-100.0); Mean Platelet Volume 9.3; Monocytes # (A) 0.5 k/uL (0-1.0); Monocytes % (A) 6 %; Neutrophils # (A) 6.9 k/uL (1.3-7.7); Neutrophils % (A) 78 %; Platelet Count 224 k/uL (150-450); RBC 3.49 m/uL (3.80-5.40); RDW 14.9 % (11.5-15.5); WBC 8.9 k/uL (3.8-10.6)
[2021-12-31] MEDS: IBUPROFEN 600 MG TAB PO PRN ×3 (07:50→18:01)
[2021-12-31] MEDS: SENNOSIDES-DOCUSATE SODIUM 1 EACH TAB PO SCH ×2 (07:51→20:33)
--- NOTE | 2021-12-31 08:46 | P.PN ---
Progress Note - Text Date: 12/31/2021 Time: 08:46 The patient is status post, total abdominal hysterectomy. Vital signs stable VAS: 0-1-10 Patient has no complaints of pain. The patient incurred some minimal itching yesterday, this itching is now subsiding. Pain meds to be managed by service.
[2021-12-31] MEDS: ACETAMINOPHEN TAB 325 MG TAB PO PRN ×3 (08:47→20:33)
[2021-12-31] MEDS: hydroCHLOROthiazide 25 MG TAB PO SCH (09:05)
--- NOTE | 2021-12-31 10:41 | P.PN ---
Subjective Progress Note Date: 12/31/21 Principal diagnosis: Status post MANAV/BSO POD #1 Patient is doing okay today. She has been ambulating. She is not passing flatus or bowel movement yet. She has urinated. She denies any nausea or vomiting. Pain has been fairly well-controlled with ibuprofen and Tylenol. She is tolerating liquid diet. Objective - Vital Signs Vital signs: Vital Signs Temp 98.6 F 12/31/21 07:35 Pulse 104 H 12/31/21 07:35 Resp 18 12/31/21 07:35 BP 108/67 12/31/21 07:35 Pulse Ox 97 12/31/21 07:35 Intake & Output 12/30/21 12/31/21 12/31/21 18:59 06:59 18:59 Intake Total 2050 Output Total 525 900 200 Balance 1525 -900 -200 Weight 101.6 kg Intake: IV 1650 Oral 400 Output: Urine 325 900 200 Estimated Blood Loss 200 Other: Voiding Method Indwelling Catheter - Constitutional General appearance: Present: no acute distress - Gastrointestinal Gastrointestinal Comment(s): Incision is clean dry and intact with jeremiah in place. General gastrointestinal: Present: normal bowel sounds - Musculoskeletal Musculoskeletal Comment(s): Negative Homans bilaterally - Labs CBC & Chem 7: 12/31/21 07:00 12/30/21 06:38 Labs: Abnormal Lab Results - Last 24 Hours (Table) 12/31/21 Range/Units 07:00 RBC 3.49 L (3.80-5.40) m/uL Hgb 10.0 L (11.4-16.0) gm/dL Hct 30.8 L (34.0-46.0) % Assessment and Plan Assessment: Status post MANAV/BSO postoperative day #1 Endometriosis (1) Menorrhagia with irregular cycle Current Visit: No Status: Acute Code(s): N92.1 - EXCESSIVE AND FREQUENT MENSTRUATION WITH IRREGULAR CYCLE SNOMED Code(s): 944826607 Plan: Surgical findings are discussed with the patient and her family. Will advance diet as tolerated after flatus. Patient is allowed to shower. Encouraged ambulation. Will continue with oral pain medications.
[2021-12-31] MEDS: SIMETHICONE 80 MG CHEWABLE PO PRN ×2 (14:00→18:05)
[2022-01-01] MEDS ORDERED: ONDANSETRON ODT 4 MG TAB PO STA (00:04)
[2022-01-01] MEDS: ACETAMINOPHEN TAB 325 MG TAB PO PRN ×2 (02:41→08:24)
[2022-01-01] MEDS: SIMETHICONE 80 MG CHEWABLE PO PRN (05:27)
[2022-01-01] MEDS: LACTATED RINGERS 1,000 ML IV SCH (05:37)
[2022-01-01] MEDS: hydroCHLOROthiazide 25 MG TAB PO SCH ×2 (08:18→08:19)
[2022-01-01] MEDS: SENNOSIDES-DOCUSATE SODIUM 1 EACH TAB PO SCH (08:19)
[2022-01-01 08:32] VITALS: BP 134/76; PULSE 115; RESP 18; TEMP 98.4
--- NOTE | 2022-01-01 11:56 | P.DS ---
Providers Date of admission: 12/30/21 05:57 Expected date of discharge: 01/01/22 Attending physician: Nancy Brown Primary care physician: Caryl Toribio - Discharge Diagnosis(es) (1) Menorrhagia with irregular cycle Current Visit: No Status: Acute Hospital Course: This is a 51-year-old female who underwent a total abdominal hysterectomy with bilateral salpingo-oophorectomy on 12/30/2021. She was diagnosed with endometriosis at the time of surgery. Her postoperative course has been essentially uncomplicated. She did have some nausea yesterday when she took an ibuprofen on an empty stomach. She did take a Zofran which did help. She is tolerating regular diet now. She denies any vomiting. She has had flatus and bowel movement. She has very minimal bleeding. She is urinating without difficulty. She does complain of some lower back pain. Vital signs are stable. Abdomen is soft with positive bowel sounds 4. Incision is clean dry and intact with jeremiah in place. Extremities show negative Homans. Impression is status post MANAV/BSO postoperative day #2. Plan is to discharge home today. [place] will be removed and Steri-Strips placed prior to discharge. She will be given a prescription for ibuprofen 600 to use as needed but she may try [id number] ibuprofen 200 which is coated and can take 2 or 3 of them at the time every 4-6 hours. She will alternate with Tylenol. She will also be given a prescription for a few Zofran if needed. She is given an abdominal support binder. She is advised to follow up in the office in approximately one week for a postoperative check. She is also advised limited activity. No heavy lifting or repetitive bending. May drive in approximately 1 week as long she has reaction time to hit or breaks. She is advised to call the office if she has any further questions or concerns prior to her postoperative appointment. Procedures: Total abdominal hysterectomy with bilateral subungual nephrectomy on 12/30/2021 Patient Condition at Discharge: Stable Plan - Discharge Summary Discharge Rx Participant: No New Discharge Prescriptions: New Ibuprofen [Motrin] 600 mg PO Q6HR PRN #30 tab PRN Reason: Mild Discomfort Continue LORazepam [Ativan] 0.5 mg PO DAILY PRN PRN Reason: Anxiety hydroCHLOROthiazide 25 mg PO 1700 Discontinued Blisovi-Fe 09/15 1 tab PO DAILY No Action Ibuprofen [Motrin Ib] 400 mg PO Q8H PRN PRN Reason: Pain Or Fever > 100.5 Discharge Medication List LORazepam [Ativan] 0.5 mg PO DAILY PRN 05/09/16 [History] hydroCHLOROthiazide 25 mg PO 1700 01/17/17 [History] Ibuprofen [Motrin Ib] 400 mg PO Q8H PRN 10/05/20 [History] Ibuprofen [Motrin] 600 mg PO Q6HR PRN #30 tab 01/01/22 [Rx] Follow up Appointment(s)/Referral(s): Nancy Brown DO [Doctor of Osteopathic Medicine] - 1 Week Patient Instructions/Handouts: *Surgery [facility] - Scopalamine Patch Instructions, Hysterectomy (DC) Activity/Diet/Wound Care/Special Instructions: Activity as tolerated with no heavy lifting, bending, or stooping. Diet as tolerated. May shower, but no tub baths for 1 week. No intercourse for [address] after approximately one week as long as reaction time is normal. Discharge Disposition: HOME SELF-CARE
== END 2022-01-01 12:15 | disposition home or self-care (01) | DRG 743 ==
LOC: 2ORMAIN 05:57 → 4FBP 09:51
PROVIDERS: ADMIT Obstetrics & Gynecology; ATTEND Obstetrics & Gynecology
PROC: 0UTC0ZZ Resection of Cervix, Open Approach (ICD-10-PCS; principal; 2021-12-30 07:30)
PROC: 0UT70ZZ Resection of Bilateral Fallopian Tubes, Open Approach (ICD-10-PCS; principal; 2021-12-30 07:30)
PROC: 0UT90ZZ Resection of Uterus, Open Approach (ICD-10-PCS; principal; 2021-12-30 07:30)
PROC: 0UT20ZZ Resection of Bilateral Ovaries, Open Approach (ICD-10-PCS; principal; 2021-12-30 07:30)
DX: N80.1 Endometriosis of ovary (principal); N92.1 Excessive and frequent menstruation with irregular cycle; D25.9 Leiomyoma of uterus, unspecified; N81.2 Incomplete uterovaginal prolapse; D50.0 Iron deficiency anemia secondary to blood loss (chronic); F41.9 Anxiety disorder, unspecified; L29.9 Pruritus, unspecified; N84.0 Polyp of corpus uteri; I10 Essential (primary) hypertension; K21.9 Gastro-esophageal reflux disease without esophagitis; N83.202 Unspecified ovarian cyst, left side; N92.0 Excessive and frequent menstruation with regular cycle; Z79.899 Other long term (current) drug therapy; Z90.5 Acquired absence of kidney; Z88.8 Allergy status to other drugs, medicaments and biological substances; Z88.5 Allergy status to narcotic agent
CPT/HCPCS: 81025; 84132; 85025; 86850; 86900; 86901; 88307

== ENCOUNTER → 2022-12-12 | Outpatient (CLI) | payer BC ==
--- NOTE | 2022-12-13 10:20 | MM ---
Reason for Exam: Screening (asymptomatic). Last screening mammogram was performed 12 month(s) ago. Patient History: Menarche at age 15. First Full-Term at age 21. Hysterectomy at age 52. Postmenopausal. Hormonal Contraceptives, starting at age 21 for 10 years. 04/09/2012, Benign Core Biopsy on the left side. Risk Values: Tamela 5 year model risk: 0.8%. NCI Lifetime model risk: 7.7%. Prior Study Comparison: 08/28/2019 Bilateral Screening Mammogram, [facility]. 10/29/2020 Bilateral Screening Mammogram, [facility]. 12/07/2021 Bilateral Screening Mammogram, [facility]. Tissue Density: The breast tissue is heterogeneously dense. This may lower the sensitivity of mammography. Findings: Analyzed By CAD. There is no suspicious group of microcalcifications or new suspicious mass in either breast. Benign-appearing calcifications bilaterally. Previous mammotome biopsy left breast. Chronic nodularity within left breast. Overall Assessment: Benign, BI-RAD 2 Management: Screening Mammogram of both breasts in 1 year. A clinical breast exam by your physician is recommended on an annual basis and results should be correlated with mammographic findings. Electronically signed and approved by: Kervin Pearce D.O.
== END | disposition home or self-care (01) ==
LOC: RADMAMWWP 06:56
PROVIDERS: ATTEND Obstetrics & Gynecology
DX: Z12.31 Encounter for screening mammogram for malignant neoplasm of breast (principal); Z78.0 Asymptomatic menopausal state
CPT/HCPCS: 77063; 77067

== ENCOUNTER → 2024-02-26 | Outpatient (CLI) | payer BC ==
--- NOTE | 2024-02-29 07:44 | MM ---
Reason for Exam: Screening (asymptomatic). Last mammogram was performed 1 year(s) and 3 month(s) ago. Patient History: Menarche at age 15. First Full-Term at age 21. Hysterectomy at age 52. Postmenopausal. Hormonal Contraceptives, starting at age 21 for 10 years. 04/09/2012, Benign Core Biopsy on the left side. Risk Values: Tamela 5 year model risk: 0.9%. NCI Lifetime model risk: 7.5%. Prior Study Comparison: 10/29/2020 Bilateral Screening Mammogram, [facility]. 12/07/2021 Bilateral Screening Mammogram, [facility]. 12/12/2022 Bilateral MG 3D screening mammo w/cad, [facility]. Tissue Density: The breasts are heterogeneously dense, which may obscure small masses. Findings: Analyzed By CAD. There is no suspicious group of microcalcifications or new suspicious mass in either breast. Benign-appearing calcifications. Chronic nodularity. Overall Assessment: Benign, BI-RAD 2 Management: Screening Mammogram of both breasts in 1 year. . Patient should continue monthly self-breast exams. A clinical breast exam by your physician is recommended on an annual basis. This exam should not preclude additional follow-up of suspicious palpable abnormalities. Note on Tamela scores and lifetime risk: 1. A Tamela score greater than 3% is considered moderate risk. If this is the case, consider specialist referral to assess eligibility for a risk reducing agent. 2. If overall lifetime risk for the development of breast cancer is 20% or higher, the patient may qualify for future screening with alternating mammogram and breast MRI. Electronically signed and approved by: Danny Sanchez M.D. Radiologis
== END | disposition home or self-care (01) ==
LOC: RADMAMWWP 06:57
PROVIDERS: ATTEND Family Medicine
DX: Z12.31 Encounter for screening mammogram for malignant neoplasm of breast (principal); Z78.0 Asymptomatic menopausal state
CPT/HCPCS: 77063; 77067